=== PATIENT | female | born 1945 | race African-American/Black ===

== ENCOUNTER 2019-03-06 21:15 | Emergency (ER) | payer OTHER, BC ==
[~2019-03-06] VITALS: Ht 165.1 cm; Wt 70.3 kg
--- NOTE | 2019-03-06 21:15 | NUR ---
74 Y/O F VARUN RECIEVED FROM [facility] WITH C/O BEHAVIOR DISTURBANCE. PT IS AAOX3, CANT PLACE TIME. BEHAVIOR IS APPROPIATE AND CALM. PT IS COOPERATIVE. PER EMS "PT IS NEW TO THIS FACILTY, BUT SHE WAS COOPERATIVE ON SCENE." ERMD NOTIFIED. WILL CONTINUE TO MONITOR.
[2019-03-06 21:18] VITALS: BP 161/99
[2019-03-06] MEDS ORDERED: QUET25TA PO (21:28)
[2019-03-06] MEDS ORDERED: FISH10005 PO (21:28)
[2019-03-06] MEDS ORDERED: MAGN400S60 PO (21:28)
[2019-03-06] MEDS ORDERED: FERR325E14 PO (21:28)
[2019-03-06] MEDS ORDERED: FOLI1TAB89 PO (21:28)
[2019-03-06] MEDS ORDERED: ESCI10TA PO (21:28)
[2019-03-06] MEDS ORDERED: QUET100T44 PO (21:28)
[2019-03-06] MEDS ORDERED: DONE10TA10 PO (21:28)
[2019-03-06] MEDS ORDERED: DOCU100C16 PO (21:28)
[2019-03-06] MEDS ORDERED: MEMA5TAB PO (21:28)
[2019-03-06] MEDS ORDERED: CYAN-178 PO (21:28)
[2019-03-06] MEDS ORDERED: ATI.5 PO (21:28)
[2019-03-06] MEDS ORDERED: HALOPERIDOL IM 5 MG/ML VIAL IM ONE (21:45)
--- NOTE | 2019-03-06 22:00 | NUR ---
Patient discharged with v/s stable. Written and verbal after care instructions given and explained by . Patient alert, oriented and verbalized understanding of instructions. Wheel Chair Assisted with by EMT. All questions addressed prior to discharge. ID band removed. Patient advised to follow up with PMD. Rx of Seroquel given. Patient educated on indication of medication including possible reaction and side effects. Opportunity to ask questions provided and answered.
== END 2019-03-06 22:00 | disposition home or self-care (01) ==
LOC: MED 21:15
DX: F03.91 Unspecified dementia, unspecified severity, with behavioral disturbance (principal); Z88.0 Allergy status to penicillin; Z88.8 Allergy status to other drugs, medicaments and biological substances; Z79.899 Other long term (current) drug therapy
CPT/HCPCS: 96372; 99283; J1630

== ENCOUNTER 2019-06-14 11:56 | Inpatient (IN) | payer OTHER, BC, MEDICAID ==
[~2019-06-14] VITALS: Ht 167.6 cm; Wt 74.8 kg
[2019-06-14 11:56] VITALS: BP 120/55
[~2019-06-14 11:56] MED LIST: ATI.5 PO; CYAN-178 PO; DOCU100C16 PO; DONE10TA10 PO; ESCI10TA PO; FERR325E14 PO; FISH10005 PO; FOLI1TAB89 PO; MAGN400S60 PO; MEMA5TAB PO; QUET100T44 PO; QUET25TA PO
--- NOTE | 2019-06-14 12:03 | NUR ---
PT BIB ALS TO ER BED 4
--- NOTE | 2019-06-14 12:05 | NUR ---
VARUN FROM [facility] W/ C/O ALOC STARTING THIS MORNING. PER EMS, FACILITY STATED PT IS MORE CONFUSED THAN NORMAL. LAST SEEN NORMAL YESTERDAY. PT NORMALLY IS AOX1 TO HER NAME BUT TODAY HAS NOT SPOKEN PER FACILITY. PT IS MUMBLING INCOMPREHENSIBLE WORDS/SOUNDS TODAY. PT IS NOT ANSWERING QUESTIONS. PT IS SINUS BRADYCARDIA AT 48BPM. GCS 9 (3,4,2). BED IN LOW POSITION, SIDE RAIL UP X2 FOR PT SAFETY
[2019-06-14] MEDS ORDERED: NACL 0.9% 500 ML IV SCH (12:13)
[2019-06-14] MEDS ORDERED: DONE10TA10 PO (13:06)
[2019-06-14] MEDS ORDERED: ACET-2619 PO (13:06)
--- NOTE | 2019-06-14 13:25 | NUR ---
DR FLORIAN AT BEDSIDE EVALUATING PT.
[2019-06-14 13:29] LABS: APPEARANCE,URINE CLEAR (CLEAR); BILIRUBIN,URINE 1+ (NEGATIVE); BLOOD, URINE TRACE-L (NEGATIVE); COLOR,URINE YELLOW (YELLOW); LEUKOCYTE ESTERASE ,URINE NEGATIVE (NEGATIVE); NITRITE, URINE NEGATIVE (NEGATIVE); UGLUCOSE NEGATIVE (NEGATIVE)
[2019-06-14 13:29] LABS: ALBUMIN 3.9 g/dL (3.4-5.0); ANION GAP 14.3 (8-16); ASPARTATE AMINOTRANSFERASE 27 U/L (15-37); CARBON DIOXIDE 27.3 mmol/L (21-32); CHLORIDE 113 mmol/L (98-107); GLUCOSE 76 mg/dL (74-106); POTASSIUM 3.6 mmol/L (3.5-5.1); SODIUM SERUM 151 mmol/L (136-145); TOTAL BILIRUBIN 1.1 mg/dL (0.0-1.0); UREA NITROGEN, BLOOD 17 mg/dL (7-18)
--- NOTE | 2019-06-14 13:32 | NUR ---
PT RESTING IN BED, POSITIONED TO COMFORT, APPEARS TO BE IN NO DISTRESS, VSS.
[2019-06-14 13:46] LABS: BASOPHILS % (AUTO) 0.4 % (0.0-2.0); EOSINOPHILS % (AUTO) 0.6 % (0.0-4.0); HEMATOCRIT 36.1 % (36-48); HEMOGLOBIN 11.5 g/dL (12.0-16.0); LYMPHOCYTES # (AUTO) 1.3 K/uL (2.5-16.5); LYMPHOCYTES % (AUTO) 15.6 % (20.5-51.1); MEAN CORPUSCULAR HEMOGLOBIN 31 pg (27-31); MEAN CORPUSCULAR HGB CONC 32 g/dL (33-37); MEAN CORPUSCULAR VOLUME 98.2 fL (80-94); MONOCYTES # (AUTO) 0.4 K/uL (0.8-1.0); MONOCYTES % (AUTO) 4.8 % (1.7-9.3); NEUTROPHILS # (AUTO) 6.3 K/uL (1.8-7.7); NEUTROPHILS % (AUTO) 78.6 % (42.2-75.2); PLATELET COUNT (AUTO) 176 K/uL (140-450); RED BLOOD CELL COUNT(AUTO) 3.67 MIL/uL (4.20-5.40); RED CELL DISTRIBUTION WIDTH 14.8 % (11.6-13.7)
[2019-06-14] MEDS ORDERED: BENZ-196 PO (13:46)
[2019-06-14] MEDS ORDERED: QUET200T PO (13:46)
[2019-06-14] MEDS ORDERED: QUET50TA PO (13:46)
[2019-06-14 14:07] LABS: PROTHROMBIN TIME 10.3 secs (10.8-13.4)
[2019-06-14 14:40] LABS: RBC,URINE 0-5 /HPF (0-5); WBC,URINE NONE SEEN /HPF (0-5)
--- NOTE | 2019-06-14 15:25 | NUR ---
PT LEFT TO CT
[2019-06-14] MEDS: NACL 0.9% 1,000 ML IV SCH (15:27)
[2019-06-14] MEDS ORDERED: HYDROcodone/APAP 7.5/325 MG 1 TAB PO PRN (15:30)
[2019-06-14] MEDS ORDERED: ACETAMINOPHEN 325 MG TAB PO PRN (15:30)
[2019-06-14] MEDS ORDERED: ONDANSETRON 4 MG/2 ML VIAL IVP PRN (15:30)
--- NOTE | 2019-06-14 16:00 | NUR ---
PT RESTING IN BED, SON & DAUGHTER AT BEDSIDE
--- NOTE | 2019-06-14 16:30 | NUR ---
RECEIVED PATIENT FROM ER NURSE. PATIENT IS ON ROOM AIR. DNR, ALLERGIES TO PENICILLIN & IODINE. PATIENT IS ALOC. IV TO LEFT FA, 20G. SKIN IS INTACT. ADMITTING TELE STRIP IS SINUS RHYTHM WITH PACs
--- NOTE | 2019-06-14 16:38 | NUR ---
Patient will be admitted to care of DR. HILLS. Admited to TELEMETRY. Will go to room 108-B. Belongings list completed. Report to YANY HENSON.
[2019-06-14 17:11] LABS: FREE T4 (FREE THYROXINE) 0.64 ng/dL (0.76-1.46); MAGNESIUM 2.3 mg/dL (1.8-2.4); PHOSPHORUS 3.2 mg/dL (2.5-4.9); THYROID STIMULATING HORMONE 1.95 uIU/mL (0.34-3.74)
--- NOTE | 2019-06-14 18:54 | NUR ---
PATIENT IS RESTING QUIETLY IN BED. NS INFUSING AT 50ML/HR. WILL ENDORSE TO NEXT SHIFT FOR CONTINUITY OF CARE.
[2019-06-14] MEDS ORDERED: MECLIZINE 25 MG TAB PO PRN (19:20)
[2019-06-14] MEDS ORDERED: MAGNESIUM HYDROXIDE 2400 MG/30 ML UDC PO PRN (19:40)
[2019-06-14 20:00] VITALS: BP 144/76
--- NOTE | 2019-06-14 20:05 | NUR ---
ASSESSED PATIENTS ABILITY TO SWALLOW THIN LIQUIDS FOR SCHEDULED PO MEDICATIONS. PATIENT ABLE TO SWALLOW-SPOON FED AND BY STRAW, WITHOUT ANY CHOKING OR GAGGING. WILL CARRY OUT SCHEDULED MEDICATIONS
--- NOTE | 2019-06-14 20:10 | NUR ---
PATIENT IN BED, AWAKE, ANOx0, CANNOT MAKE NEEDS KNOWN, DOES NOT FOLLOW SIMPLE COMMANDS. PATIENT WITHDRAWS TO LIGHT PAIN. PERRL SLUGGISH 3MM. PATIENT IS ON ROOM AIR, SATURATING AT 100%. HR-66, RR-12, BP-144/76, FLACC 0, TEMPERATURE-98.2 VIA AXILLARY, SKIN WARM AND DRY, LOOSE. SKIN INTACT. LEFT FOREARM 20G PERIPHERAL IV, INFUSING NS @ 50ML/HR. SITE IS FLUSHED, PATENT AND NO SYMPTOMS. LUNG SOUNDS DIMINISHED, EQUAL CHEST RISE, BREATHING IS UNLABORED. S1S2. ABDOMEN SOFT AND NONTENDER, BOWEL SOUNDS ARE ACTIVE. PATIENT IS INCONTINENT, BRIEF IS IN PLACE. SAFETY ALARMS CHECKED AND FALL PRECAUTIONS IN PLACE. SIDERAILS UP, BED LOCKED AND IN LOWEST POSITION. WILL CONTINUE TO MONITOR
--- NOTE | 2019-06-14 20:17 | NUR ---
[facility] CALLED RE: LEXAPRO DOSE. NOT AVAILABLE IN 5 MG . THEY HAVE ONLY [address] MELLO AWARE. HOLD ORDER FOR RENE. WILL FOLLOW IT UP IN THE AM
--- NOTE | 2019-06-14 20:22 | NUR ---
INFORMED PHARMACIST THAT SAID TO HOLD FOR [employer].
[2019-06-14] MEDS: DONEPEZIL 10 MG TAB PO SCH (20:41)
[2019-06-14] MEDS: DOCUSATE SODIUM 100 MG GELCAP PO SCH (20:42)
--- NOTE | 2019-06-14 20:57 | NUR ---
ULTRASOUND AT BEDSIDE, PATIENT AWAKE, TOLERATED WELL.
[2019-06-14] MEDS ORDERED: QUEtiapine FUMARATE 100 MG TAB PO SCH (21:00)
--- NOTE | 2019-06-14 22:10 | NUR ---
CHECKED IN ON PATIENT, RESTING WELL, EYES CLOSED, AUDIBLE SOUNDS NOTED (SNORING) IV FLUIDS INFUSING, CHEST RISE AND FALL. WILL CONTINUE FREQUENT ROUNDS
[2019-06-15] VITALS: BP 137/68
--- NOTE | 2019-06-15 | NUR ---
TURNED AND REPOSITIONED PATIENT, CHECKED VITALS, ALL WITHIN NORMAL LIMITS. PATIENT ANOx0, SPEECH IS INCOMPREHENSIBLE, WITHDRAWS TO LIGHT PAIN/SHAKING. OFFLOAD PRESSURE SITES.
[2019-06-15] MEDS: NACL 0.9% 1,000 ML IV SCH ×2 (03:25→13:27)
[2019-06-15 04:00] VITALS: BP 144/54
--- NOTE | 2019-06-15 06:34 | NUR ---
PT ASLEEP, BUT EASILY AROUSABLE TO VERBAL AND TACTILE STIMULI. PT IN STABLE CONDITION AT THIS TIME.
--- NOTE | 2019-06-15 07:10 | NUR ---
RECEIVED BEDSIDE REPORT FROM DIRECTOR OF RESTAURANT NURSE FOR CONTINUITY OF CARE. PATIENT IS RESTING ON BED AT THIS TIME. AROUSABLE TO VOICE. PATIENT IS AAOX1, PATIENT MUMBLED SOME WORDS, UNCOMPREHENDING. RESPIRATION EVEN AND UNLABORED ON RA. FLACC 0. NO SIGNS OF DISTRESS NOTED. IV ON LAC 20G, CLEAN AND INTACT, INFUSING PER MD ORDER. SKIN CLEAN AND DRY. PATIENT IS INCONTINENT AND BEDREST AT THIS TIME. PATIENT IS MAINTAIN NPO PER MD ORDER, AND SIGN POSTED ON DOOR. SAFETY MEASURES IN PLACE. FALL RISK PROTOCOL IN PLACE AND BED ALARM ACTIVATED. BED IN LOW POSITION AND CALL LIGHT WITHIN REACH.
[2019-06-15 07:41] LABS: BASOPHILS % (AUTO) 0.7 % (0.0-2.0); EOSINOPHILS # (AUTO) 0.2 K/uL (0-0.4); EOSINOPHILS % (AUTO) 3.2 % (0.0-4.0); HEMATOCRIT 34.3 % (36-48); HEMOGLOBIN 10.9 g/dL (12.0-16.0); LYMPHOCYTES # (AUTO) 1.7 K/uL (2.5-16.5); LYMPHOCYTES % (AUTO) 25.3 % (20.5-51.1); MEAN CORPUSCULAR HEMOGLOBIN 31 pg (27-31); MEAN CORPUSCULAR HGB CONC 32 g/dL (33-37); MEAN CORPUSCULAR VOLUME 98.1 fL (80-94); MONOCYTES # (AUTO) 0.5 K/uL (0.8-1.0); MONOCYTES % (AUTO) 6.9 % (1.7-9.3); NEUTROPHILS # (AUTO) 4.3 K/uL (1.8-7.7); NEUTROPHILS % (AUTO) 63.9 % (42.2-75.2); PLATELET COUNT (AUTO) 165 K/uL (140-450); RED BLOOD CELL COUNT(AUTO) 3.49 MIL/uL (4.20-5.40); RED CELL DISTRIBUTION WIDTH 14.8 % (11.6-13.7); WHITE BLOOD COUNT (AUTO) 6.7 K/uL (4.8-10.8)
[2019-06-15 07:56] LABS: ANION GAP 11.2 (8-16); CARBON DIOXIDE 27.1 mmol/L (21-32); CHLORIDE 114 mmol/L (98-107); CREATININE 0.8 mg/dL (0.6-1.3); GLUCOSE 70 mg/dL (74-106); POTASSIUM 3.3 mmol/L (3.5-5.1); SODIUM SERUM 149 mmol/L (136-145); UREA NITROGEN, BLOOD 12 mg/dL (7-18)
[2019-06-15 08:00] VITALS: BP 148/60
[2019-06-15 08:10] LABS: PHOSPHORUS 2.3 mg/dL (2.5-4.9)
--- NOTE | 2019-06-15 08:22 | NUR ---
PATIENT HAS BEEN SCREENED AND CATEGORIZED MODERATE NUTRITION RISK. PATIENT WILL BE SEEN WITHIN 3-5 DAYS OF ADMISSION. 06/17/19 06/19/[address]
[2019-06-15 08:41] LABS: CHOL/HDL RATIO 4.5 (1-4.5)
[2019-06-15] MEDS ORDERED: QUEtiapine FUMARATE 100 MG TAB PO SCH (09:00)
[2019-06-15] MEDS: DOCUSATE SODIUM 100 MG GELCAP PO SCH ×2 (09:51→20:11)
[2019-06-15] MEDS: FAMOTIDINE 20 MG TAB PO SCH (09:52)
[2019-06-15] MEDS: MEMANTINE 10 MG TAB PO SCH (09:52)
--- NOTE | 2019-06-15 09:54 | NUR ---
ADMINISTERED MEDS PER MD ORDER, CRUSHED MEDS AND MIXED WITH APPLE SAUCE, PATIENT TOLERATED WELL. MEDS EDUCATION PROVIDED TO PATIENT AND REINFORCEMENT NEEDED. PATIENT IS AAOX1 TO HER NAME AND SHE MUMBLED SOME WORDS INCOMPREHENSIBLE. PATIENT IS RESTING ON BED. FLACC 0. RESPIRATION EVEN AND UNLABORED ON RA. NO SIGNS OF DISTRESS NOTED. SAFETY MEASURES IN PLACE. TELE MONITOR ATTACHED. FALL RISK PROTOCOL INITIALED AND BED ALARM ACTIVATED. BED IN LOW POSITION AND CALL LIGHT WITHIN REACH.
--- NOTE | 2019-06-15 10:04 | NUR ---
PATIENT IS PARTICIPATING IN PHYSICAL THERAPY SESSION WITH WILLIAM MUNOZ. NO SIGNS OF DISTRESS NOTED. TELE MONITOR ATTACHED.
--- NOTE | 2019-06-15 10:52 | NUR ---
RECEIVED A CALL FROM [facility] , SPOKE WITH JOAN PADRON [phone] UPDATED PT'S STATUS AND CONDITION AND FAXED THE CLINICAL TO [phone]
--- NOTE | 2019-06-15 11:08 | NUR ---
REPOSITIONED PATIENT TO HER RIGHT SIDE WITH ASSIST FROM STUDENT NURSE, OFF LOADED PRESSURES FROM BACK AND LEGS WITH PILLOWS. PATIENT TOLERATED WELL. PATIENT IS AWAKE AND MUMBLING SOME WORDS UNABLE TO COMPREHEND. FLACC 0. RESPIRATION EVEN AND UNLABORED ON RA. NO SIGNS OF DISTRESS NOTED. TELE MONITOR ATTACHED. SAFETY MEASURES IN PLACE. BED IN LOW POSITION AND CALL LIGHT WITHIN REACH. FALL RISK PROTOCOL IN PLACE AND BED ALARM ACTIVATED.
--- NOTE | 2019-06-15 11:58 | NUR ---
VITAL SIGNS TAKEN, PATIENT AWAKE AND RESTING WITH BOTH EYES AND LOOKING AT THE CEILING. WHEN ASK PATIENT IF SHE HAS ANY PAIN, PATIENT MUMBLING WITH SOME WORDS UNABLE TO COMPREHEND. FLACC 0. NO SIGNS OF DISTRESS NOTED. SAFETY MEASURES IN PLACE. BED IN LOW POSITION AND CALL LIGHT WITHIN REACH. TELE MONITOR ATTACHED. FALL RISK PROTOCOL IN PLACE AND BED ALARM ACTIVATED.
[2019-06-15 12:00] VITALS: BP 149/52
[2019-06-15] MEDS ORDERED: POTASSIUM CHLORIDE 20 MEQ, LIDOCAINE MPF 1% 25 MG in NACL 0.9% 250 ML IV SCH (12:30)
--- NOTE | 2019-06-15 12:37 | NUR ---
ADMINISTERED POTASSIUM CHLORIDE VIA IVPB FOR POTASSIUM LAB VALUE 3.3 FROM AM LAB, MED EDUCATION PROVIDED TO PATIENT AND REINFORCEMENT NEEDED. PATIENT IS RESTING ON BED AT THIS TIME AND MUMBLING SOME WORDS INCOMPREHENSIBLE. FLACC 0. NO SIGNS OF DISTRESS NOTED. TELE MONITOR ATTACHED. SAFETY MEASURES IN PLACE. BED IN LOW POSITION AND CALL LIGHT WITHIN REACH. FALL RISK PROTOCOL IN PLACE AND BED ALARM ACTIVATED.
--- NOTE | 2019-06-15 13:11 | NUR ---
PATIENT AWAKE AND INTERACTING WITH DAUGHTER- IN- LAW YOGESH BY BEDSIDE. NO SIGNS OF DISTRESS NOTED. SAFETY MEASURES IN PLACE. BED IN LOW POSITION AND CALL LIGHT WITHIN REACH. TELE MONITOR ATTACHED. FALL RISK PROTOCOL IN PLACE AND BED ALARM ACTIVATED.
--- NOTE | 2019-06-15 15:10 | NUR ---
CALLED TATI ROPER TO FOLLOW UP ON VACCINATION RECORD, PER CLOTH EXAMINER, THE MEDICAL RECORD TECH/ PERSONNEL IS OUT TO LUNCH AT THIS TIME. PROVIDED A CALL BACK NUMBER TO CLOTH EXAMINER TO RETURN CALL.
--- NOTE | 2019-06-15 15:35 | NUR ---
ASSISTED ENGINE TURNER TO CLEAN AND CHANGE PATIENT, PATIENT TOLERATED WELL. REPOSITIONED PATIENT TO HER LEFT LATERAL AND OFF LOADED PRESSURE FROM BACK AND LEGS WITH PILLOWS. NO SIGNS OF DISTRESS NOTED. PATIENT IS RESTING ON BED AND MUMBLING SOME WORDS INCOMPREHENSIBLE. TELE MONITOR ATTACHED. SAFETY MEASURES IN PLACE. FALL RISK PROTOCOL AND BED ALARM ACTIVATED. BED IN LOW POSITION AND CALL LIGHT WITHIN REACH.
--- NOTE | 2019-06-15 15:56 | NUR ---
RADIOLOGIST KEITH MAYER IS DOING ECHOCARDIOGRAM BY BEDSIDE. NO SIGNS OF DISTRESS NOTED. TELE MONITOR ATTACHED. SAFETY MEASURES IN PLACE.
[2019-06-15 16:00] VITALS: BP 147/78
--- NOTE | 2019-06-15 17:24 | NUR ---
PATIENT IS AWAKE WITH BOTH EYES OPEN AND RESTING ON BED AT THIS TIME. RESPIRATION EVEN AND UNLABORED ON RA. WHEN ASK IF SHE IS FEELING OK, PATIENT MUMBLING SOME WORDS AND YAWNING. FLACC 0. NO SIGNS OF DISTRESS NOTED. TELE MONITOR ATTACHED. SAFETY MEASURES IN PLACE. BED IN LOW POSITION AND CALL LIGHT WITHIN REACH. FALL RISK PROTOCOL IN PLACE AND BED ALARM ACTIVATED.
--- NOTE | 2019-06-15 19:15 | NUR ---
ENDORSED PATIENT AT BEDSIDE TO COTTON GIN YARD SUPERVISOR NURSE FOR CONTINUITY OF CARE. PATIENT IS AWAKE AND RESTING ON BED AT THIS TIME. NO SIGNS OF DISTRESS NOTED. PATIENT IS IN STABLE CONDITION. TELE MONITOR ATTACHED. SAFETY MEASURES IN PLACE. BED IN LOW POSITION AND CALL LIGHT WITHIN REACH. FALL RISK PROTOCOL IN PLACE AND BED ALARM ACTIVATED.
[2019-06-15] MEDS ORDERED: LACTULOSE 20 GM/30 ML UDC PO SCH (19:30)
[2019-06-15 20:00] VITALS: BP 157/67
[2019-06-15] MEDS ORDERED: POTASSIUM PHOSPHATE 15 MM in NACL 0.9% 250 ML IV SCH (20:00)
[2019-06-15] MEDS: QUEtiapine FUMARATE 100 MG TAB PO SCH (20:12)
[2019-06-15] MEDS: ATORVASTATIN 20 MG TAB PO SCH (20:12)
[2019-06-15] MEDS: DONEPEZIL 10 MG TAB PO SCH (20:12)
--- NOTE | 2019-06-15 20:12 | NUR ---
ADMINISTERED DUE MEDS, EXPLAINED TO PATIENT BUT PT IS FLACC 0, AO X 1.WILL MONITOR FOR SIDE EFFECTS
[2019-06-15] MEDS: ESCITALOPRAM 20 MG TAB PO SCH (20:13)
--- NOTE | 2019-06-15 20:39 | NUR ---
INFORMED DR. BAZZI THAT K PHOSPHATE IV NOT AVAILABLE TONIGHT IN THE HOSPITAL STOCK. JEWELS, ENVELOPE SEALER OPERATOR ADVISED. AWARE AND WILL CHANGE THE ORDER. AWAITING ORDERS
[2019-06-15] MEDS: NACL 0.45% 1,000 ML IV SCH (20:47)
--- NOTE | 2019-06-15 20:47 | NUR ---
CHANGED THE IV BAG TO D5NS ORDERED.
--- NOTE | 2019-06-15 21:00 | NUR ---
REPOSITIONED PATIENT, OFFLOAD PRESSURE ON HER BACK, PLACED HER IN SEMI FOWLERS POSITION
--- NOTE | 2019-06-15 22:01 | NUR ---
PATIENT TURNED TO ONE SIDE, CLEANED AND CHANGED GOWN. NO FACIAL GRIMACING. NO RESPIRATOIRY DISTRESS PT WENT BACK TO SLEEP WILL CONTINUE TO MONITOR
[2019-06-16] VITALS: BP 148/68
--- NOTE | 2019-06-16 | NUR ---
CHECKED ON PATIENT, PATIENT MUMBLING TO HERSELF, CLEANED AND TURNED HER TO ONE SIDE. REPOSITIONED IN A COMFORTABLE POSITION. PT WENT BACK TO SLEEP Addendum: 06/17/19 at 0313 by Sherry Gatica RN DELETE NOTE
[2019-06-16 04:00] VITALS: BP 136/83
[2019-06-16] MEDS: NACL 0.45% 1,000 ML IV SCH ×2 (05:57→16:07)
--- NOTE | 2019-06-16 06:34 | NUR ---
PT SLEEPING, AWAKE ALERT O X 1, STILL LETHARGIC, BUT PT WAS ABLE TO SPEAK FEW WORDS, INCOMPREHENSIBLE, NO CHANGE OF CONDITION,WILL ENDORSE TO NEXT SHIFT.
--- NOTE | 2019-06-16 07:10 | NUR ---
RECEIVED BEDSIDE REPORT FROM HOGSHEAD SALVAGE NURSE FOR CONTINUITY OF CARE. PATIENT IS RESTING ON BED AT THIS TIME. AROUSABLE TO VOICE. PATIENT IS AAOX1, PATIENT MUMBLED SOME WORDS,FLACC 0. RESPIRATION EVEN AND UNLABORED ON RA. NO SIGNS OF DISTRESS NOTED. IV ON LAC 20G, CLEAN AND INTACT, INFUSING PER MD ORDER. SKIN CLEAN AND DRY. PATIENT IS INCONTINENT AND BEDREST AT THIS TIME. PATIENT IS MAINTAIN NPO PER MD ORDER, AND SIGN POSTED ON DOOR. TELE MONITOR ATTACHED. SAFETY MEASURES IN PLACE. FALL RISK PROTOCOL IN PLACE AND BED ALARM ACTIVATED. BED IN LOW POSITION AND CALL LIGHT WITHIN REACH.
[2019-06-16 07:47] LABS: BASOPHILS % (AUTO) 0.8 % (0.0-2.0); EOSINOPHILS # (AUTO) 0.2 K/uL (0-0.4); HEMATOCRIT 34.8 % (36-48); HEMOGLOBIN 11.1 g/dL (12.0-16.0); LYMPHOCYTES # (AUTO) 1.9 K/uL (2.5-16.5); LYMPHOCYTES % (AUTO) 30.6 % (20.5-51.1); MEAN CORPUSCULAR HEMOGLOBIN 31 pg (27-31); MEAN CORPUSCULAR HGB CONC 32 g/dL (33-37); MEAN CORPUSCULAR VOLUME 97.6 fL (80-94); MONOCYTES # (AUTO) 0.4 K/uL (0.8-1.0); MONOCYTES % (AUTO) 5.8 % (1.7-9.3); NEUTROPHILS # (AUTO) 3.6 K/uL (1.8-7.7); NEUTROPHILS % (AUTO) 59.8 % (42.2-75.2); PLATELET COUNT (AUTO) 163 K/uL (140-450); RED BLOOD CELL COUNT(AUTO) 3.56 MIL/uL (4.20-5.40); RED CELL DISTRIBUTION WIDTH 14.7 % (11.6-13.7); WHITE BLOOD COUNT (AUTO) 6.1 K/uL (4.8-10.8)
[2019-06-16 08:00] VITALS: BP 131/75
[2019-06-16 08:04] LABS: ANION GAP 14.4 (8-16); CARBON DIOXIDE 25.8 mmol/L (21-32); CHLORIDE 109 mmol/L (98-107); CREATININE 0.8 mg/dL (0.6-1.3); GLUCOSE 68 mg/dL (74-106); POTASSIUM 3.2 mmol/L (3.5-5.1); SODIUM SERUM 146 mmol/L (136-145); UREA NITROGEN, BLOOD 9 mg/dL (7-18)
[2019-06-16 08:11] LABS: PHOSPHORUS 2.2 mg/dL (2.5-4.9)
[2019-06-16] MEDS: SODIUM PHOS / POTASSIUM PHOS 1 PKT PDR PO SCH (09:50)
[2019-06-16] MEDS: FAMOTIDINE 20 MG TAB PO SCH (09:51)
[2019-06-16] MEDS: MEMANTINE 10 MG TAB PO SCH (09:51)
[2019-06-16] MEDS: QUEtiapine FUMARATE 100 MG TAB PO SCH ×2 (09:51→21:44)
[2019-06-16] MEDS: DOCUSATE SODIUM 100 MG GELCAP PO SCH ×2 (09:52→21:40)
--- NOTE | 2019-06-16 09:54 | NUR ---
ADMINISTERED MEDS PER MD ORDER, CRUSHED MEDS AND MIXED WITH APPLE SAUCE, PATIENT TOLERATED WELL. MEDS EDUCATION PROVIDED TO PATIENT AND REINFORCEMENT NEEDED. PATIENT AWAKE AND MUMBLING ON BED. RESPIRATION EVEN AND UNLABORED ON RA. FLACC 0. NO SIGNS OF DISTRESS NOTED. TELE MONITOR ATTACHED. SAFETY MEASURES IN PLACE. FALL RISK PROTOCOL IN PLACE AND BED ALARM ACTIVATED. BED IN LOW POSITION AND CALL LIGHT WITHIN REACH.
--- NOTE | 2019-06-16 10:38 | NUR ---
CONTACTED APURVA AT [phone], ABLE TO SPEAK TO CHANDA (CUST REP). SHE PROVIDED ME WITH TAMMY (CALCINER OPERATOR HELPER) [phone], NO ANSWER. LEFT MESSAGE. AND ALSO RAGHAVENDRA (THU) AT [phone], NO ANSWER WELL. LEFT MESSAGE REGARDING DC PLAN. CM TO FOLLOW UP.
--- NOTE | 2019-06-16 10:59 | NUR ---
RECEIVED A CALL FROM CHELLE (HAIRMASTERS MANAGER) FROM [facility], INFORMED HER OF THE DC PLAN TO SNF FOR PT. SHE STATED THAT SHE SPOKE TO SOMEBODY YESTERDAY REGARDING SNF PLACEMENT DUE TO PATIENT'S BEHAVIOR AND IT IS NOT APPROPRIATE TO DC PATIENT TO SNF WITHOUT SKILLED NEEDS. SHE PROVIDED ME WITH THE FAX NUMBER [phone] TO SEND ORDER. AWAITING FOR PHYSICAL THERAPY RECOMMENDATIONS.
--- NOTE | 2019-06-16 11:14 | NUR ---
RECEIVED A CALL FROM PATIENT'S DAUGHTER IN [place] THAT SHE SAID THAT PATIENT HAS NOT GETTING FLU AND PNA VACCINES, AND SHE WOULD LIKE TO GET ALL VACCINES UPON DC. MAKE NOTES OF IT.
--- NOTE | 2019-06-16 11:45 | NUR ---
PATIENT IS RESTING ON BED AND AROUSABLE TO VOICE. PATIENT SAID "DON'T TOUCH MY HAND." AND MUMBLING SOME WORDS THAT UNABLE TO UNDERSTAND. NO SIGNS OF DISTRESS NOTED. SAFETY MEASURES IN PLACE. TELE MONITOR ATTACHED. BED IN LOW POSITION AND CALL LIGHT WITHIN REACH. BED ALARM ACTIVATED.
[2019-06-16 12:00] VITALS: BP 151/64
--- NOTE | 2019-06-16 13:50 | NUR ---
ASSISTED COMPUTER SYSTEMS SOFTWARE ARCHITECT TO CLEAN AND CHANGE PATIENT, PATIENT TOLERATED WELL. REPOSITIONED PATIENT TO HER RIGHT AND OFF LOADED PRESSURE FROM BACK AND LEGS WITH PILLOWS. NO SIGNS OF DISTRESS NOTED. PATIENT IS RESTING ON BED AND MUMBLING SOME WORDS INCOMPREHENSIBLE. TELE MONITOR ATTACHED. SAFETY MEASURES IN PLACE. FALL RISK PROTOCOL AND BED ALARM ACTIVATED. BED IN LOW POSITION AND CALL LIGHT WITHIN REACH.
--- NOTE | 2019-06-16 14:46 | NUR ---
SPOKE TO TAMMY THOMAS, SHE STATED THAT THERE IS NO PT NEEDS FOR THIS PATIENT DUE TO POOR REHAB POTENTIAL. DR. DUARTE MADE AWARE.
[2019-06-16] MEDS ORDERED: POTASSIUM CHLORIDE 40 MEQ, LIDOCAINE MPF 1% 25 MG in NACL 0.9% 250 ML IV SCH (15:00)
[2019-06-16] MEDS ORDERED: SODIUM PHOS / POTASSIUM PHOS 1 PKT PDR PO SCH (15:00)
--- NOTE | 2019-06-16 15:20 | NUR ---
PATIENT IS RESTING ON BED AND MUMBLING TO HERSELF. WHEN ASK IF SHE HAS ANY PAIN, SHE REPLIED WITH SOME WORDS MUMBLING AND UNABLE TO UNDERSTAND. FLACC 0. RESPIRATION EVEN AND UNLABORED ON RA. NO SIGNS OF DISTRESS NOTED. TELE MONITOR ATTACHED. SAFETY MEASURES IN PLACE. FALL RISK PROTOCOL AND BED ALARM ACTIVATED. BED IN LOW POSITION AND CALL LIGHT WITHIN REACH.
[2019-06-16 16:00] VITALS: BP 155/82
--- NOTE | 2019-06-16 16:06 | NUR ---
ADMINISTERED MEDS PER MD ORDER, UNABLE TO SCAN AND HA[place] ENTER, PATIENT TOLERATED WELL. PATIENT IS RESTING ON BED AND AROUSABLE TO VOICE. NO SIGNS OF DISTRESS NOTED. TELE MONITOR ATTACHED. SAFETY MEASURES IN PLACE. FALL RISK PROTOCOL AND BED ALARM ACTIVATED. BED IN LOW POSITION AND CALL LIGHT WITHIN REACH.
--- NOTE | 2019-06-16 18:19 | NUR ---
PATIENT IS AWAKE WITH BOTH EYES OPEN AND MUMBLING TO HERSELF ON BED AT THIS TIME. NO SIGNS OF DISTRESS NOTED. TELE MONITOR ATTACHED. SAFETY MEASURES IN PLACE. FALL RISK PROTOCOL AND BED ALARM ACTIVATED. BED IN LOW POSITION AND CALL LIGHT WITHIN REACH.
--- NOTE | 2019-06-16 19:15 | NUR ---
ENDORSED PATIENT AT BEDSIDE TO QUILL BUNCHER AND SORTER NURSE FOR CONTINUITY OF CARE. PATIENT IS RESTING ON BED AT THIS TIME AND AROUSABLE TO VOICE. NO SIGNS OF DISTRESS NOTED. PATIENT IS IN STABLE CONDITION. SAFETY MEASURES IN PLACE. TELE MONITOR ATTACHED. FALL RISK PROTOCOL IN PLACE AND BED ALARM ACTIVATED. BED IN LOW POSITION AND CALL LIGHT WITHIN REACH.
--- NOTE | 2019-06-16 19:16 | NUR ---
RECEIVED BEDSIDE REPORT FROM AM NURSE FOR CONTINUITY OF CARE. PT A, A O X 1. BEDREST. PT ABLE TO RESPOND WITH HER NAME, BUT MUMBLING INCOMPREHENSIBLE WORDS. FLACC 0. RESPIRATION EVEN AND UNLABORED ON RA. NO SIGNS OF DISTRESS NOTED. TELE MONITOR ATTACHED. SAFETY MEASURES IN PLACE. FALL RISK PROTOCOL AND BED ALARM ACTIVATED. BED IN LOW POSITION AND CALL LIGHT WITHIN REACH.
[2019-06-16 20:00] VITALS: BP 146/65
--- NOTE | 2019-06-16 20:30 | NUR ---
POTASSIUM CHLORIDE INFUSION DONE AND SHIFTED TO 1/2 NS AT 100 ML/HR
[2019-06-16] MEDS: DONEPEZIL 10 MG TAB PO SCH (21:40)
[2019-06-16] MEDS: ESCITALOPRAM 20 MG TAB PO SCH (21:42)
[2019-06-16] MEDS: ATORVASTATIN 20 MG TAB PO SCH (21:44)
[2019-06-17] VITALS: BP 123/70
--- NOTE | 2019-06-17 | NUR ---
CHECKED ON PATIENT, PATIENT MUMBLING TO HERSELF, CLEANED AND TURNED HER TO ONE SIDE. REPOSITIONED IN A COMFORTABLE POSITION. PT WENT BACK TO SLEEP
--- NOTE | 2019-06-17 00:50 | NUR ---
CHECKED ON THE PT AGAIN AND THE IVF, INFUSING WELL, PATENT
--- NOTE | 2019-06-17 02:00 | NUR ---
PT SLEEPING TURNED, STILL LETHARGIC NO SOB NO SIGNS AND SYMPTOMS OF PAIN
[2019-06-17 04:00] VITALS: BP 114/48
--- NOTE | 2019-06-17 04:12 | NUR ---
PT SLEEPING NO SIGNS AND SYMPTOMS OF PAIN. PT TURNED AND CLEANED, PT WENT BACK TO BED. WILL CONTINUE TO MONITOR
[2019-06-17] MEDS: NACL 0.45% 1,000 ML IV SCH ×2 (06:28→11:10)
[2019-06-17] MEDS ORDERED: PNEUMOCOCCAL VACCINE 23 MCG/0.5 ML VIAL IMVAC SCH (06:30)
[2019-06-17 06:43] LABS: ANION GAP 13.3 (8-16); CARBON DIOXIDE 25.2 mmol/L (21-32); CHLORIDE 105 mmol/L (98-107); CREATININE 0.7 mg/dL (0.6-1.3); GLUCOSE 65 mg/dL (74-106); MAGNESIUM 1.7 mg/dL (1.8-2.4); PHOSPHORUS 2.7 mg/dL (2.5-4.9); POTASSIUM 3.5 mmol/L (3.5-5.1); SODIUM SERUM 140 mmol/L (136-145); UREA NITROGEN, BLOOD 11 mg/dL (7-18)
--- NOTE | 2019-06-17 06:44 | NUR ---
PT LETHARGIC FLACC 0, BEDREST. PT STABLE AT THIS TIME WILL ENDORSE TO NEXT SHIFT
[2019-06-17 06:48] LABS: BASOPHILS # (AUTO) 0.1 K/uL (0.00-0.22); BASOPHILS % (AUTO) 1.3 % (0.0-2.0); EOSINOPHILS # (AUTO) 0.2 K/uL (0-0.4); EOSINOPHILS % (AUTO) 4.2 % (0.0-4.0); HEMOGLOBIN 10.7 g/dL (12.0-16.0); LYMPHOCYTES # (AUTO) 1.5 K/uL (2.5-16.5); LYMPHOCYTES % (AUTO) 26.5 % (20.5-51.1); MEAN CORPUSCULAR HEMOGLOBIN 31 pg (27-31); MEAN CORPUSCULAR HGB CONC 33 g/dL (33-37); MEAN CORPUSCULAR VOLUME 96.1 fL (80-94); MONOCYTES # (AUTO) 0.3 K/uL (0.8-1.0); MONOCYTES % (AUTO) 6.2 % (1.7-9.3); NEUTROPHILS # (AUTO) 3.4 K/uL (1.8-7.7); NEUTROPHILS % (AUTO) 61.8 % (42.2-75.2); PLATELET COUNT (AUTO) 160 K/uL (140-450); RED BLOOD CELL COUNT(AUTO) 3.43 MIL/uL (4.20-5.40); RED CELL DISTRIBUTION WIDTH 14.4 % (11.6-13.7); WHITE BLOOD COUNT (AUTO) 5.5 K/uL (4.8-10.8)
--- NOTE | 2019-06-17 07:15 | NUR ---
RECEIVED PATIENT FROM BATTERY PARTS ASSEMBLER NURSE. PATIENT IS SLEEPING IN BED, VISIBLE CHEST RISE AND FALL. A&O X1, IV TO LEFT AC 20G WITH 1/2NS INFUSING AT 100ML/HR. PATIENT IS DNR WITH ALLERGIES TO PENICILLIN AND IODINE. WILL CONTINUE WITH PLAN OF CARE.
[2019-06-17 08:00] VITALS: BP 157/67
[2019-06-17] MEDS ORDERED: HEPA500056 SUBQ (08:23)
[2019-06-17] MEDS ORDERED: ATOR20TA40 PO ×2 (08:23→08:30)
[2019-06-17] MEDS ORDERED: QUET100T44 PO ×2 (08:23→08:30)
[2019-06-17] MEDS: SODIUM PHOS / POTASSIUM PHOS 1 PKT PDR PO SCH (09:00)
[2019-06-17] MEDS: DOCUSATE SODIUM 100 MG GELCAP PO SCH (09:00)
[2019-06-17] MEDS ORDERED: MAG SULF 2000 MG/WATER PREMIX 50 ML IV SCH (09:00)
[2019-06-17] MEDS: QUEtiapine FUMARATE 100 MG TAB PO SCH (09:37)
[2019-06-17] MEDS: MEMANTINE 10 MG TAB PO SCH (09:38)
[2019-06-17] MEDS: FAMOTIDINE 20 MG TAB PO SCH (09:38)
--- NOTE | 2019-06-17 09:47 | NUR ---
ADMINISTERED MORNING MEDICATION CRUSHED AND MIXED WITH PUDDING. COULD NOT ADMINISTER COLACE D/T PT UNABLE TO SWALLOW MEDICATION WHOLE.
[2019-06-17] MEDS ORDERED: SODIUM PHOS / POTASSIUM PHOS 1 PKT PDR PO SCH (10:00)
--- NOTE | 2019-06-17 10:32 | NUR ---
*S.T. Bedside swallow eval completed* See report for details. Pt presents w/ mild-mod oropharyngeal dysphagia c/b prolonged mastication of soft solids and delayed pharyngeal swallow initiation. However, no overt s/s aspiration were observed. Pt unable to self-feed. Recommend: 1) Advance to mechanical soft chopped diet, thin liquids okay. No straws. Controlled cup sips. 2) P.O. meds crushed and mixed w/ puree. 3) 1:1 feeder w/ aspiration precautions. While recommended diet is slightly downgraded from reported baseline diet, pt does not present as strong rehab candidate. Therefore, no further tx is indicated. DC to [facility] care. Endorsed to YANY Wood. Time [id number]
--- NOTE | 2019-06-17 10:45 | NUR ---
Desktop Support Manager Note: I called and spoke with patient's daughter Teofilo Terrazas , I informed her plan is to discharge patient back to [facility] today. She verbalized understanding and is agreeable with plan. She told me she will be contacting the Desktop Support Manager from [facility] so she can assist her with finding patient another assisted living placement for patient. She stated she does not have any questions nor concerns at this time.
--- NOTE | 2019-06-17 11:33 | NUR ---
RECEIVED A CALL FROM RAGHAVENDRA OF [employer], PROVIDED ME OF TRANSPORT AUTH [id number] WITH [place]. PRIMARY RN NATIVIDAD MADE AWARE. PER PRIMARY RN, [facility] HANSON WILL TOOLROOM HELPER THE PATIENT AT 1500 PM.
[2019-06-17 12:00] VITALS: BP 124/75
--- NOTE | 2019-06-17 14:30 | NUR ---
ADMINISTERED PNA VACCINE IM VIA LEFT DELTOID.
--- NOTE | 2019-06-17 15:38 | NUR ---
TRANSPORTER CAME BY HERSELF AND TOLD US THAT WE NEEDED TO HELP HER GET PATIENT IN [place]. MADE HER AWARE THAT IT IS A LIABILITY AND WE TYPICALLY WHEEL PATIENT TO FRONT OF HOSPITAL WHERE TRANSPORTATION AND ASSISTANCE SHOULD BE COVERED. SHE SAID SHE WILL TOUCH BASE WITH ADMINISTRATION AND GET BACK TO ME. IV LINE HAS ALREADY BEEN REMOVED, CANNULA INTACT.
[2019-06-17 16:00] VITALS: BP 117/58
--- NOTE | 2019-06-17 16:55 | NUR ---
MARKETING AUTOMATION MANAGER WITH [employer] AT 1999. PRIMARY RN AND CHARGE NURSE MADE AWARE.
--- NOTE | 2019-06-17 19:30 | NUR ---
RECEIVED PT FROM KATHRINE SLADE PT AOX1 [facility] BE [facility]
--- NOTE | 2019-06-17 21:45 | NUR ---
AT 2145 REPORT GIVEN TO [facility] AND ALL PROTOCOL FOR DISCHARGE GIVEN PT LEAVING ON STABLE CODITION VSS
== END 2019-06-17 21:50 | disposition home or self-care (01) | DRG 917 ==
LOC: MED 11:56 → MTU 15:30
PROVIDERS: ADMIT General Practice; ATTEND General Practice
DX: T42.4X1A Poisoning by benzodiazepines, accidental (unintentional), initial encounter (principal); G92 Toxic encephalopathy; E87.0 Hyperosmolality and hypernatremia; G30.9 Alzheimer's disease, unspecified; F02.80 Dementia in other diseases classified elsewhere, unspecified severity, without behavioral disturbance, psychotic disturbance, mood disturbance, and anxiety; E78.5 Hyperlipidemia, unspecified; I10 Essential (primary) hypertension; Z66 Do not resuscitate; K59.09 Other constipation; D63.8 Anemia in other chronic diseases classified elsewhere; E83.39 Other disorders of phosphorus metabolism; E87.6 Hypokalemia; K72.90 Hepatic failure, unspecified without coma; Z88.0 Allergy status to penicillin; Z91.041 Radiographic dye allergy status; Y92.89 Other specified places as the place of occurrence of the external cause
CPT/HCPCS: 36415; 70450; 71045; 80048; 80053; 81001; 82140; 83036; 83605; 83735; 83880; 84100; 84439; 84443; 84484; 85025; 85610; 85730; 87040; 87081; 87086; 90732; 92610; 93005; 93880; 99285; C1758; J1644; J2001; J3475; J3480; J7030; Q0092

== ENCOUNTER 2020-03-30 17:24 | Emergency (ER) | payer OTHER, BC, MEDICAID ==
[~2020-03-30] VITALS: Ht 170.2 cm; Wt 72.6 kg
[~2020-03-30 17:24] MED LIST changes: +ACET-2619 PO; +ATOR20TA40 PO; +BENZ-196 PO; -DOCU100C16 PO; -QUET25TA PO
[2020-03-30 17:45] VITALS: BP 158/70
--- NOTE | 2020-03-30 17:52 | NUR ---
PT MOVED TO BED 6 BY EMS.
--- NOTE | 2020-03-30 17:56 | NUR ---
75 Y/O FEMALE BIBA FROM [facility] WITH APPROX 1 INCH LACERATION TO OCCIPUT S/P MECHANICAL FALL. DENIES LOC, BLEEDING CONTROLLED. PER EMS PT TAKES ASPIRIN DAILY. GCS 14, BASELINE FOR PT. AWAKE AND RESPONSIVE TO NAME. VSS MEDHX: HTN, DEMENTIA, SCHIZOPHRENIA
--- NOTE | 2020-03-30 18:04 | NUR ---
DR BEAL AT BEDSIDE EXAMINING PT
--- NOTE | 2020-03-30 18:33 | NUR ---
PT TO CT VIA ABIGAIL
[2020-03-30 18:38] LABS: BASOPHILS % (AUTO) 0.6 % (0.0-2.0); EOSINOPHILS # (AUTO) 0.1 K/uL (0-0.4); HEMOGLOBIN 11.9 g/dL (12.0-16.0); LYMPHOCYTES # (AUTO) 1.8 K/uL (2.5-16.5); LYMPHOCYTES % (AUTO) 30.5 % (20.5-51.1); MEAN CORPUSCULAR HEMOGLOBIN 32 pg (27-31); MEAN CORPUSCULAR HGB CONC 32 g/dL (33-37); MEAN CORPUSCULAR VOLUME 99.3 fL (80-94); MONOCYTES # (AUTO) 0.3 K/uL (0.8-1.0); MONOCYTES % (AUTO) 5.8 % (1.7-9.3); NEUTROPHILS # (AUTO) 3.5 K/uL (1.8-7.7); NEUTROPHILS % (AUTO) 61.1 % (42.2-75.2); PLATELET COUNT (AUTO) 147 K/uL (140-450); RED BLOOD CELL COUNT(AUTO) 3.73 MIL/uL (4.20-5.40); RED CELL DISTRIBUTION WIDTH 14.6 % (11.6-13.7); WHITE BLOOD COUNT (AUTO) 5.8 K/uL (4.8-10.8)
[2020-03-30 19:06] LABS: ALBUMIN 3.7 g/dL (3.4-5.0); ANION GAP 12.4 (8-16); ASPARTATE AMINOTRANSFERASE 11 U/L (15-37); CARBON DIOXIDE 28.3 mmol/L (21-32); CHLORIDE 112 mmol/L (98-107); CREATININE 0.9 mg/dL (0.6-1.3); GLUCOSE 104 mg/dL (74-106); POTASSIUM 3.7 mmol/L (3.5-5.1); SODIUM SERUM 149 mmol/L (136-145); TOTAL BILIRUBIN 0.4 mg/dL (0.0-1.0); UREA NITROGEN, BLOOD 24 mg/dL (7-18)
[2020-03-30] MEDS ORDERED: LIDOCAINE MPF 1% 10 MG/ML VIAL INJ ONE (19:10)
[2020-03-30 19:13] LABS: PROTHROMBIN TIME 9.9 secs (10.8-13.4)
--- NOTE | 2020-03-30 19:19 | NUR ---
Mey de leon in [facility] - 03/30/20 at 1920 by [email or web address] RECIEVED REPORT FROM YANY NAZARIO. TRANSFER OF CARE AT THIS TIME.
--- NOTE | 2020-03-30 19:19 | NUR ---
REPORT GIVEN TO YANY RICHARD. TRANSFER OF CARE AT THIS TIME
--- NOTE | 2020-03-30 19:22 | NUR ---
RECIEVED REPORT FROM YANY NAZARIO. TRANSFER OF CARE AT THIS TIME.
--- NOTE | 2020-03-30 19:22 | NUR ---
LIDOCAINE PLACED AT BEDSIDE
--- NOTE | 2020-03-30 19:27 | NUR ---
CLEANED AND IRRAGATED PT'S HEAD LAC WITH NS AND BETADINE AND PREP IT FOR ER PHYSICIAN TO STAPLE WIHTOUT INCIDENT.
--- NOTE | 2020-03-30 20:09 | NUR ---
CALL MADE TO FAMILY MEMBER -- ON HER WAY TO AGRICULTURE DEPARTMENT CHAIR PATIENT.
[2020-03-30 20:32] VITALS: BP 143/70
--- NOTE | 2020-03-30 20:32 | NUR ---
Patient discharged with v/s stable. Written and verbal after care instructions given and explained. Patient verbalized understanding. Ambulatory with steady gait. All questions addressed prior to discharge. Advised to follow up with PMD.
== END 2020-03-30 20:32 | disposition home or self-care (01) ==
LOC: MED 17:24
DX: S01.01XA Laceration without foreign body of scalp, initial encounter (principal); F03.90 Unspecified dementia, unspecified severity, without behavioral disturbance, psychotic disturbance, mood disturbance, and anxiety; F20.9 Schizophrenia, unspecified; I10 Essential (primary) hypertension; Z79.899 Other long term (current) drug therapy; Z88.0 Allergy status to penicillin; Z88.8 Allergy status to other drugs, medicaments and biological substances; W18.39XA Other fall on same level, initial encounter; Y93.89 Activity, other specified; Y92.89 Other specified places as the place of occurrence of the external cause; Y99.8 Other external cause status
CPT/HCPCS: 12011; 36415; 70450; 72125; 80053; 85025; 85610; 85730; 90471; 90715; 93005; 99285; J2001

== ENCOUNTER 2020-06-28 07:47 | Emergency (ER) | payer OTHER, MEDICAID, BC ==
[~2020-06-28] VITALS: Ht 170.2 cm; Wt 61.2 kg
[2020-06-28 07:52] VITALS: BP 152/88
--- NOTE | 2020-06-28 07:59 | NUR ---
75 YO FEMALE BIBA FOR POSSIBLE INSECT BITE ON RIGHT SIDE FOREHEAD SINCE LAST NIGHT. AREA IS SWOLLEN WITH NO BRUISING OR BLEEDING OBSERVED. PT IS UNABLE TO COMMUNICATE WHAT HAPPENED D/T DEMENTIA. PT DOES MOVE AWAY AND GRIMMACE WHENT HE AREA IS PALPATED. PMH: DEMENTIA, ANXIETY AND SCHIZO EFFECTIVE
--- NOTE | 2020-06-28 08:30 | NUR ---
MOVED PT TO BED 6 D/T PT TRYING TO CLIMB OUT OF BED
--- NOTE | 2020-06-28 08:36 | NUR ---
PT TAKEN TO CT VIA ABIGAIL
--- NOTE | 2020-06-28 09:10 | NUR ---
DAUGHTER-IN LAW AT BEDSIDE AND AGREED TO TAKE PT BACK TO [facility].
[2020-06-28 09:17] VITALS: BP 152/88
== END 2020-06-28 09:18 | disposition home or self-care (01) ==
LOC: MED 07:47
DX: S00.86XA Insect bite (nonvenomous) of other part of head, initial encounter (principal); F03.90 Unspecified dementia, unspecified severity, without behavioral disturbance, psychotic disturbance, mood disturbance, and anxiety; I10 Essential (primary) hypertension; Z88.0 Allergy status to penicillin; Z88.1 Allergy status to other antibiotic agents; Z79.899 Other long term (current) drug therapy; W57.XXXA Bitten or stung by nonvenomous insect and other nonvenomous arthropods, initial encounter; Y93.89 Activity, other specified; Y92.89 Other specified places as the place of occurrence of the external cause; Y99.8 Other external cause status
CPT/HCPCS: 70450; 99284

== ENCOUNTER 2020-07-05 14:11 | Inpatient (IN) | payer OTHER, MEDICAID, BC, SELFPAY ==
[~2020-07-05] VITALS: Ht 170.2 cm; Wt 58.1 kg
--- NOTE | 2020-07-05 14:11 | NUR ---
PATIENT BIBA BLS TO ER BED 10
[2020-07-05 14:18] VITALS: BP 146/66
--- NOTE | 2020-07-05 14:38 | NUR ---
DR. MAGAÑA EVALUATING PT AT BEDSIDE
--- NOTE | 2020-07-05 14:42 | NUR ---
75/F EDKrystle FROM [facility] C/O LETHARGY X TODAY AM. USUALLY PT AMBULATES AROUND FACILITY IN AM BUT TODAY JUST REMAINED IN BED. USUALLY FIGHTS STAFF WHEN CHANGING PT BUT TODAY DID NOT DO SO. EMS FOUND PT 88% ON RA, SO PLACED PT ON 3L NC. NO COUGH OR FEVER PER EMS. PER EMS REPORT, PT IS NONVERBAL HOWEVER PT IS MUMBLING/INCOMPREHENSIBLE AT THIS TIME. HX- SCHIZOPHRENIA, DEMENTIA, ANXIETY
--- NOTE | 2020-07-05 14:43 | NUR ---
PER DR. MAGAÑA, TAKE PT OFF NC NOW FOR ABG COLLECTION. PT PUT ON RA AT THIS TIME.
--- NOTE | 2020-07-05 14:55 | NUR ---
LABS DRAWN BEDSIDE AND HANDED TO [facility]
--- NOTE | 2020-07-05 14:58 | NUR ---
EMT AT BEDSIDE FOR EKG
[2020-07-05 15:11] LABS: BASOPHILS % (AUTO) 0.2 % (0.0-2.0); HEMATOCRIT 39.3 % (36-48); HEMOGLOBIN 12.6 g/dL (12.0-16.0); LYMPHOCYTES # (AUTO) 0.7 K/uL (2.5-16.5); LYMPHOCYTES % (AUTO) 15.9 % (20.5-51.1); MEAN CORPUSCULAR HEMOGLOBIN 32 pg (27-31); MEAN CORPUSCULAR HGB CONC 32 g/dL (33-37); MEAN CORPUSCULAR VOLUME 98.4 fL (80-94); MONOCYTES # (AUTO) 0.2 K/uL (0.8-1.0); MONOCYTES % (AUTO) 5.4 % (1.7-9.3); NEUTROPHILS # (AUTO) 3.6 K/uL (1.8-7.7); NEUTROPHILS % (AUTO) 78.5 % (42.2-75.2); PLATELET COUNT (AUTO) 104 K/uL (140-450); WHITE BLOOD COUNT (AUTO) 4.6 K/uL (4.8-10.8)
--- NOTE | 2020-07-05 15:11 | NUR ---
RT NOTIFIED FOR ABG ORDER
[2020-07-05 15:20] LABS: ALBUMIN 3.4 g/dL (3.4-5.0); ANION GAP 12.5 (8-16); ASPARTATE AMINOTRANSFERASE 32 U/L (15-37); CARBON DIOXIDE 30.1 mmol/L (21-32); CHLORIDE 114 mmol/L (98-107); CREATININE 1.1 mg/dL (0.6-1.3); GLUCOSE 142 mg/dL (74-106); POTASSIUM 3.6 mmol/L (3.5-5.1); SODIUM SERUM 153 mmol/L (136-145); TOTAL BILIRUBIN 0.6 mg/dL (0.0-1.0); UREA NITROGEN, BLOOD 20 mg/dL (7-18)
--- NOTE | 2020-07-05 15:22 | NUR ---
X-Ray at bedside.
[2020-07-05 15:32] LABS: PROTHROMBIN TIME 9.3 secs (10.8-13.4)
[2020-07-05] MEDS ORDERED: ALUM355S5 PO (15:37)
[2020-07-05] MEDS ORDERED: CALC-1626 PO (15:37)
[2020-07-05] MEDS ORDERED: MIRT15TA PO (15:37)
[2020-07-05] MEDS ORDERED: LORA-476 PO (15:37)
--- NOTE | 2020-07-05 15:49 | NUR ---
RT AT BEDSIDE FOR ABG
--- NOTE | 2020-07-05 15:56 | NUR ---
KAMINI GRACE COLLECTED AND DROPPED OFF AT LAB
--- NOTE | 2020-07-05 16:01 | NUR ---
RT UNABLE TO OBTAIN ABG, WILL GET ANOTHER RT TO COME TRY. PT ON RA, SATURATING 92% AT THIS TIME.
[2020-07-05] MEDS ORDERED: NACL 0.9% 1,000 ML IV ONE (16:30)
--- NOTE | 2020-07-05 16:50 | NUR ---
NOTIFIED DR. MAGAÑA OF TEMP 101.0 ORAL, DR. MAGAÑA TO ORDER RECTAL TYLENOL.
[2020-07-05 16:59] LABS: APPEARANCE,URINE CLEAR (CLEAR); BILIRUBIN,URINE NEGATIVE (NEGATIVE); BLOOD, URINE 2+ (NEGATIVE); COLOR,URINE YELLOW (YELLOW); LEUKOCYTE ESTERASE ,URINE NEGATIVE (NEGATIVE); NITRITE, URINE POSITIVE (NEGATIVE); UGLUCOSE NEGATIVE (NEGATIVE)
[2020-07-05] MEDS ORDERED: AZITHROMYCIN 1,000 MG in DEXTROSE 5% 500 ML IV ONE (17:00)
[2020-07-05] MEDS ORDERED: ACETAMINOPHEN 650 MG SUPP RC ONE (17:00)
--- NOTE | 2020-07-05 17:00 | NUR ---
STOPPED NS INFUSION AT THIS TIME PER DR. MAGAÑA ORDERS.
[2020-07-05] MEDS ORDERED: LEVOFLOXACIN 500 MG/D5W PREMIX 100 ML IV ONE (17:05)
[2020-07-05] MEDS ORDERED: AZITHROMYCIN 500 MG INJ VIAL IV ONE (17:08)
[2020-07-05 17:18] LABS: WBC,URINE 0-5 /HPF (0-5)
--- NOTE | 2020-07-05 17:53 | NUR ---
UPDATED YOGESH MCKEON (PERSON TO NOTIFY) ON PT CONDITION AND PLANS FOR ADMISSION
[2020-07-05] MEDS ORDERED: ALBUTEROL HFA MDI 90 MCG/ACTUATION 8 GM INH PRN ×2 (18:25→18:45)
[2020-07-05] MEDS ORDERED: POTASSIUM CHLORIDE 10 MEQ TABER PO PRN ×2 (18:25→18:45)
[2020-07-05] MEDS ORDERED: DOCUSATE SODIUM 100 MG GELCAP PO PRN ×2 (18:25→18:45)
[2020-07-05] MEDS ORDERED: HYDROcodone/APAP 7.5/325 MG 1 TAB PO PRN ×2 (18:25→18:45)
[2020-07-05] MEDS ORDERED: ONDANSETRON 4 MG/2 ML VIAL IM/IVP PRN ×2 (18:25→18:45)
[2020-07-05] MEDS ORDERED: ACETAMINOPHEN 325 MG TAB PO PRN ×2 (18:25→18:45)
[2020-07-05] MEDS ORDERED: NACL 0.9% 1,000 ML IV SCH (18:25)
[2020-07-05] MEDS: NACL 0.9% 1,000 ML IV SCH (18:45)
--- NOTE | 2020-07-05 18:55 | NUR ---
PT RECEIVED AT THIS TIME FROM [facility]. AOX 1 PT IS STABLE WITH IV ACCESS TO LEFT AC THAT IS INTACT AND PATENT PT WAS RECONNECTED BACK TO IV PUMP AND IS CURRENTLY RUNNING ZITHROMAX AT 250ML/HR. PT REMAINS ON 3 L NC AT 96-97% NO SOB PT HAS INTACT SKIN. BELONGINGS INCLUDED CLOTHES NO VALUABLES. SAFETY MEASURES INITIATED. PT ORIENTED TO ROOM, REMOTE AND CALL LIGHT. PT APPEARS SLIGHTLY IRRITABLE SELECTIVITY MUTE AT TIMES, THEN MUMBLES TO SELF. ADMISSION WILL BE ENDORSED TO NUTRITION TECHNICIAN
--- NOTE | 2020-07-05 18:56 | NUR ---
Patient will be admitted to care of DR. ARDON. Admited to TELE. Will go to room 117. Belongings list completed. Report to KONG SLADE.
[2020-07-05 19:08] LABS: FREE T4 (FREE THYROXINE) 0.78 ng/dL (0.76-1.46); MAGNESIUM 2.3 mg/dL (1.8-2.4); PHOSPHORUS 2.8 mg/dL (2.5-4.9); THYROID STIMULATING HORMONE 0.91 uIU/mL (0.34-3.74)
--- NOTE | 2020-07-05 19:25 | NUR ---
REPORT ENDORSED TO AMMUNITION ASSEMBLY II LABORER AM. PT IS STABLE LAYING IN BED RECEIVING IVF WITH NO ISSUES.
--- NOTE | 2020-07-05 19:25 | NUR ---
RECEIVED REPORT FROM KAM RNKONG. PT AOX0 ON 3L N/C, O2 SAT 95%. PT MUMBLES, INCOMPREHENSIBLE SPEECH, WITHDRAWS TO PAIN, EYES OPEN TO VOICE AND SHAKING. NO S/S RESPIRATORY DISTRESS. FLACC 0. IV SITE LAC 20G PATENT AND INTACT INFUSING ZITHROMAX AT 250 ML/HR. SKIN WARM DRY INTACT, BOWEL SOUNDS ACTIVE. SAFETY MEASURES IN PLACE. CALL LIGHT WITHIN REACH. WILL CONTINUE TO MONITOR
[2020-07-05] MEDS ORDERED: LORazepam 1 MG TAB PO PRN (19:55)
[2020-07-05] MEDS ORDERED: ALUMINUM HYD/MAG/SIMETHICONE 30 ML UDC PO PRN (19:55)
[2020-07-05] MEDS ORDERED: MAGNESIUM HYDROXIDE 2400 MG/30 ML UDC PO PRN (19:55)
[2020-07-05 20:00] VITALS: BP 114/64
[2020-07-05] MEDS: FERROUS SULFATE 325 MG TABEC PO SCH (21:00)
[2020-07-05] MEDS: MIRTAZAPINE 15 MG TAB PO SCH (21:00)
--- NOTE | 2020-07-05 21:40 | NUR ---
PT SEEN AND ASSESSED. PT IS ON 2L NASAL CANNULA WITH SPO2 OF 95%. PT IS IN NO APPARENT RESPIRATORY DISTRESS AT THIS TIME. RN AT BEDSIDE. WILL CONTINUE TO MONITOR PT.
--- NOTE | 2020-07-05 22:50 | NUR ---
PT ASLEEP IN BED. NO S/S RESPIRATORY DISTRESS, O2 SAT 94%. WILL CONTINUE TO MONITOR
[2020-07-06] VITALS: BP 127/49
--- NOTE | 2020-07-06 00:45 | NUR ---
CLEANED, CHANGED, REPOSITIONED PT, TOLERATED WELL. NO DISTRESS NOTED. WILL CONTINUE TO MONITOR
--- NOTE | 2020-07-06 03:29 | NUR ---
PT AWAKE IN BED, MUMBLING. AOX1 TO NAME. O2 SAT 95%. NO DISTRESS NOTED. WILL CONTINUE TO MONITOR
[2020-07-06 04:00] VITALS: BP 138/57
--- NOTE | 2020-07-06 05:10 | NUR ---
PT ASLEEP IN BED. RESPIRATIONS EVEN AND UNLABORED. NO DISTRESS NOTED. WILL CONTINUE TO MONITOR
--- NOTE | 2020-07-06 07:15 | NUR ---
ENDORSED PT TO DAY RN FOR CONTINUITY OF CARE. PT IS IN STABLE CONDITION
--- NOTE | 2020-07-06 07:16 | NUR ---
RECEIVED ENDORSEMENT FROM PROPERTY PORTFOLIO OFFICER, AWAKE, ALERT BUT INCOHERENT, BREATHING SPONTANEOUSLY WITH O2 AT 2L/MIN VIA NC, NOT IN DISTRESS NOTED. WITH ONGOING IV FLUID WITH 0.9%NS AT 60ML/HOUR INFUSING AT LEFT AC, G20 IV CANNULA NOTED. ON DROPLET ISOLATION DX WITH COVID POSITIVE. SAFETY MEASURES IN PLACE AND CONTINUE MONITOR.
[2020-07-06 08:00] VITALS: BP 142/51
--- NOTE | 2020-07-06 08:54 | NUR ---
PATIENT HAS BEEN SCREENED AND CATEGORIZED MODERATE NUTRITION RISK. PATIENT WILL BE SEEN WITHIN 3-5 DAYS OF ADMISSION. 07/08/20 07/10/[address]
[2020-07-06] MEDS ORDERED: CYANOCOBALAMIN 1000 MCG PO SCH (09:00)
[2020-07-06] MEDS ORDERED: ZINC SULF 220 MG CAP PO SCH (09:00)
[2020-07-06] MEDS ORDERED: ASCORBIC ACID 500 MG TAB PO SCH (09:00)
[2020-07-06] MEDS ORDERED: DEXAMETHASONE 4 MG TAB PO SCH ×2 (09:00)
--- NOTE | 2020-07-06 09:43 | NUR ---
PLATELET-104, DR. MORTON INFORMED THRU TEXT MESSAGES IF CAN GIVE DUE HEPARIN 500UNITS SUBQ Q12H, HE REPLIED TO GIVE FOR TODAY, HIS PARAMETER OF GIVING HEPARIN LESS THAN 100, NOTED
[2020-07-06] MEDS: CALCIUM CARB/VIT-D 500 MG/200 IU 1 TAB PO SCH ×2 (10:02→21:48)
[2020-07-06] MEDS: FERROUS SULFATE 325 MG TABEC PO SCH ×2 (10:02→21:48)
[2020-07-06] MEDS: MEMANTINE 10 MG TAB PO SCH (10:02)
[2020-07-06] MEDS: ZINC SULF 220 MG CAP PO SCH (10:02)
[2020-07-06] MEDS: CYANOCOBALAMIN 1,000 MCG TAB PO SCH (10:03)
[2020-07-06] MEDS: FOLIC ACID 1 MG TAB PO SCH ×3 (10:04→17:37)
[2020-07-06] MEDS: ASCORBIC ACID 500 MG TAB PO SCH (10:04)
[2020-07-06] MEDS: ESCITALOPRAM 20 MG TAB PO SCH (10:05)
[2020-07-06] MEDS ORDERED: CRUSHER, PILL MC ONE (10:06)
--- NOTE | 2020-07-06 10:15 | NUR ---
MEDICATION GIVEN WITH APPLE SAUCE, TOLERATED WELL. NOVEL SHARMA SWAB TEST DONE AND SENT TO LAB
--- NOTE | 2020-07-06 11:22 | NUR ---
SAFE DEPOSIT BOX RENTAL CLERK NOTE: Patient's Orientation Unable To Assess Information Provided By YOGESH MCKEON - DAUGHTER Comments SW WAS UNABLE TO MEET PATIENT AT BEDSIDE. SW CONTACTED DAUGHTER TO COMPLETE ASSESSMENT. Store Planner, Realtionship and Phone Number YOGESH MCKEON DAUGHTER [phone] MASSIEL MCKEON SON [phone] Healthcare Power of Bus Cleaner No Does Patient Have a POLST No Identifying Problems No Social Work Triggers Is A Social Work Consult Needed No Mandate Report Filed No Explanation Of Identifying Problems PATIENT IS A 75-YEAR-OLD FEMALE ADMITTED FOR COVID AND HYPOXIA. PATIENT HAS PMHX DEMENTIA AND HYPERTENSION. PATIENT WAS ADMITTED FROM [facility] [phone]. Admitted From Assisted Living/Resident Pre-Admission Level Of Functioning Status Total Care Level Of Functioning Comment PER SON, PATIENT REQUIRES TOTAL ASSISTANCE WITH ADLS. Prior Resources/Services Used In Last 12 Months Assisted Living Prior DME Hospital Bed Dialysis Comments SON REPORTED THAT PATIENT DOES NOT RECEIVE DIALYSIS. Living Situation Asst'd Living/Board &Care Patient Had Caregiver No Home Support No Caregiver Issues Financial Issues No Known Financial Issue Referral To The Financial Counselor Needed No Factors/Needs No D/C Needs Identified Explanation And Or Other Factors Affecting/Possible DC Needs PATIENT'S DAUGHTER STATED SHE PREFERRED PATIENT RETURN TO [facility]. Pt/Rep Participated In Discharge Plan Yes Patient/Family Agress With Discharge Plan Yes Discharge Plan Comments TENTATIVE DISCHARGE PLAN IS FOR PATIENT TO RETURN TO [facility]. DC Plan Status Initiated
[2020-07-06 12:00] VITALS: BP 125/71
[2020-07-06] MEDS: NACL 0.9% 1,000 ML IV SCH (12:44)
--- NOTE | 2020-07-06 12:44 | NUR ---
ABOVE IV FLUID CONSUMED AND FOLLOWED BY SAME IF FLUID AT SAME RATE. DUE MEDICATION GIVEN WITH APPLE SAUCE, KEPT COMFORTABLE TO BED.
--- NOTE | 2020-07-06 15:00 | NUR ---
TELEPHONE CONSENT OBTAINED FROM THE SON FOR TRANSFUSION OF 1 UNIT [facility] AND AGREED WITH THE PROCEDURE.
--- NOTE | 2020-07-06 15:03 | NUR ---
KUSUM RAIL CAR LOADER: PATIENT IS FROM [facility], HOWEVER THIS PATIENT IS COVID POSITIVE AND WILL NOT BE ABLE TO RETURN TO [facility] AT THIS TIME. PATIENT WILL NEED SNF. FAXED PATIENTS CLINICALS TO [facility] Addendum: 07/07/20 at 1116 by Deepti Xiong CM KUSUM RAIL CAR LOADER: SPOKE TO PATIENTS DAUGHTER REGARDING PLANS OF DISCHARGE. DISCUSSED OPTIONS OF SNFS THAT ARE CONTRACTED WITH THE PATIENTS INSURANCE AND ACCEPTING COVID PATIENTS. DAUGHTERS PREFERENCE IS [facility]. WILL FAX PATIENTS CLINICALS. Addendum: 07/11/20 at 1041 by Deepti Xiong CM KUSUM RAIL CAR LOADER: PATIENT CAN DISCHARGE TODAY TO [facility] ROOM 112-[address]. [facility] DOES NOT HAVE ANY AVAILABLE TRANSPORTATION FOR COVID PATIENTS IN OUR AREA TODAY. CONTACTED [facility] AND SPOKE TO MAGNOLIA [phone], SHE IS WORKING ON SETTING UP TRANSPORTATION. SPOKE TO NATAN AT [facility] SHE CAN NOT PROVIDE TRANSPORTATION TODAY BECAUSE THEIR RUNNING SPECIALIST IS BUSY TODAY TAKING PATIENTS TO APPOINTMENTS. Addendum: 07/11/20 at 1105 by Deepti Xiong CM KUSUM KLINE: SPOKE TO CHRISTEL REGARDING TRANSPORTATION SHE CONTACTED HER FILLER MIXER REGARDING [facility]. HE SAID THAT [facility] IS IN THE PROCESS OF SETTING UP TRANSPORTATION AND WILL BE CALLING ME BACK WITH ETA. Addendum: 07/11/20 at 1158 by Deepti Xiong CM KUSUM KLINE: PATIENT WILL BE PICKED UP BETWEEN 1:30M -2:00 PM BY [facility]. NOTIFIED YANY GONSALVES Addendum: 07/11/20 at 1159 by Deepti Xiong CM KUSUM KLINE: RM [address] [place] [address] . Addendum: 07/11/20 at 1207 by Deepti Xiong CM KUSUM KLINE: PETTY ESPINAL AT [facility] THAT PATIENT IS DISCHARGING TO [facility]. Addendum: 07/11/20 at 1211 by Deepti Xiong CM DC RAIL CAR LOADER: NOTIFIED PATIENTS WILLIS PIERCE THAT HIS MOTHER WILL BE DISCHARGING TODAY TO [facility]. Addendum: 07/11/20 at 1425 by Deepti Xiong CM KUSUM RAIL CAR LOADER: FOLLOWED UP WITH [facility] [phone] THEY HAD TO RE-ROUTE DUE TO THE [address] BEING SHUT DOWN. THE NEW ETA IS 2:50 PM
--- NOTE | 2020-07-06 15:08 | NUR ---
CONSENT FO TRANSFUSION FAXED TO DR. MORTON, AWAITING FOR REPLY.
[2020-07-06 16:00] VITALS: BP 145/80
--- NOTE | 2020-07-06 16:19 | NUR ---
BLOOD EXTRACTED BY ASSET AVAILABILITY LEADER FOR TYPE AND SCREEN
--- NOTE | 2020-07-06 17:18 | NUR ---
BLOOD BANK STAFF CALLED, [facility] NOT YET AVAILABLE, THEY WILL CALL [facility] FOR INVENTORY. ONCE AVAILABLE THEY INFORM THE NURSE ASSIGN TO THE PATIENT
--- NOTE | 2020-07-06 18:12 | NUR ---
DINNER SERVED, FEEDING ASSISTED BY CRISTY
--- NOTE | 2020-07-06 19:18 | NUR ---
ENDORSED TO WANT AD CLERK IN STABLE CONDITION FOR CONTINUITY OF CARE
--- NOTE | 2020-07-06 19:20 | NUR ---
RECEIVED PT FROM AM SHIFT. PT SEEN AND ASSESSED. PT IS ON 2L NASAL CANNULA WITH SPO2 OF 92%. PT IS IN NO APPARENT RESPIRATORY DISTRESS AT THIS TIME. INFORMED PT TO CALL RN OR FILM MASKER FOR PRN TX WHEN EXPERIENCING SHORTNESS OF BREATH. WILL CONTINUE TO MONITOR PT.
--- NOTE | 2020-07-06 19:30 | NUR ---
RECEIVED REPORT FROM GUZMAN AT BEDSIDE FOR CONTINUITY OF CARE, PT IN STABLE CONDITION.
[2020-07-06 20:00] VITALS: BP 125/59
--- NOTE | 2020-07-06 20:00 | NUR ---
PT IN BED HOB UP 35%, PT IS DROWSY BUT AROUSABLE TO NAME AND LIGHT SHAKING. SHE IS ON 2 LITERS VIA N/C. HER SKIN R B/P IS INTACT AND SHE HAS A LAC 20 GUAGE WHICH IS INTACT AND FLUSHED PATENT. PT RUNNING NORMAL SALINE AT 60MLS/HR. PT LUNG SOUNDS CLEAR AND DIMINISHED. ABDOMEN SOFT AND BOWEL SOUNDS HYPOACTIVE. V/S FOLLOWS: T 99.3 P 81 R 18 B/P 125/59 02 94% ON ROOM AIR. ALL DROPLET AND FALLS PRECAUTIONS IN PLACE.
--- NOTE | 2020-07-06 21:30 | NUR ---
PT GIVEN SCHEDULED MEDS CRUSHED WITH APPLE SAUCE,. PT ALSO ABLE TO DRINK APPLE JUICE AND MILK WITH ASSISTANCE. EDUCATION REGARDING ADMINISTERED MEDICATION WAS GIVEN , BUT PT UNABLE TO COMPREHEND. PT GIVEN COOLING MEASURES OF ICE PACKS AND LESS BLANKETS DUE TO INCREASED TEMPERATURE. ALL DROPLET AND FALLS PRECAUTIONS IN PLACE.
[2020-07-06] MEDS: MIRTAZAPINE 15 MG TAB PO SCH (21:48)
--- NOTE | 2020-07-06 22:00 | NUR ---
PT WAS REPOSITIONED IN BED. ALL FALLS AND DROPLET PRECAUTIONS IN PLACE.
[2020-07-07] VITALS: BP 140/62
--- NOTE | 2020-07-07 | NUR ---
PT IN BED RESTING WITH EYES CLOSED. PT WAS TURNED, CHANGED AND REPOSITIONED IN BED. IV SITE INTACT AND RUNNING NORMAL SALINE AT 60MLS/HR. PT CONTINUES ON 2 LITERS 02 VIA N/C. V/S FOLLOWS: T 97.8 P 60 R 18 B/P 140/62 02 96% ON 2 LITERS VIA N/C. ALL FALLS AND DROPLET PRECAUTIONS IN PLACE.
[2020-07-07 04:00] VITALS: BP 137/86
--- NOTE | 2020-07-07 04:00 | NUR ---
PT WAS TURNED, CHANGED AND REPOSITIONED IN BED V/S FOLLOWS: T 97.6 P 58 R 20 B/P 137/86 02 94% ON 2 LITERS VIA N/C. ALL DROPLET AND FALLS PRECAUTIONS IN PLACE,.
[2020-07-07] MEDS: NACL 0.9% 1,000 ML IV SCH ×2 (04:05→20:04)
--- NOTE | 2020-07-07 07:10 | NUR ---
RECEIVED REPORT FROM PM RNELEAZAR. PT CAME FROM [facility]. CC: LETHERGY, GEN WEAKNESS. DX: PNEUMONIA, COVID 19, HYPOXIA. HX: HTN, DEMENTIA, PSYCHOSIS, ANEMIA, SCHIZOPHRENIA, ANXIETY, HYPERLIPIDEMIA, ALZHEIMER, BIPOLAR. ALLERGIES: PCN, IODINE. PT IS DNR. IV: LAC 20G RUNNING NS AT 60. DIET: REGUALR PUREE, MEDS CRUSHED AND MIXED WITH APPLESAUCE, PT REQUIRES FEEDER. PT IS A&OX1. PT IS ON 2L NC SATING BETWEEN 94-97%. PT IS INCONTINENT. SKIN IS INTACT. PLAN: GIVE 1 UNITS OF PLASMA, MONITOR TEMP, PENDING CONSULT, MONITOR LOW PLATELETS.
[2020-07-07 08:00] VITALS: BP 151/78
[2020-07-07 08:09] LABS: T4 (THYROXINE) 5.7 ug/dL (4.5-12.0)
[2020-07-07] MEDS: CALCIUM CARB/VIT-D 500 MG/200 IU 1 TAB PO SCH ×2 (09:02→20:04)
[2020-07-07] MEDS: FERROUS SULFATE 325 MG TABEC PO SCH ×2 (09:02→20:04)
[2020-07-07] MEDS: ZINC SULF 220 MG CAP PO SCH (09:02)
[2020-07-07] MEDS: MEMANTINE 10 MG TAB PO SCH (09:03)
[2020-07-07] MEDS: ESCITALOPRAM 20 MG TAB PO SCH (09:03)
[2020-07-07] MEDS: FOLIC ACID 1 MG TAB PO SCH ×3 (09:03→17:34)
[2020-07-07] MEDS: ASCORBIC ACID 500 MG TAB PO SCH (09:03)
[2020-07-07] MEDS: CYANOCOBALAMIN 1,000 MCG TAB PO SCH (09:05)
--- NOTE | 2020-07-07 09:30 | NUR ---
PASSED MEDS TO PT. CRUSHED AND MIXED IN APPLE SAUCE. VISIBLE RISE AND FALL OF CHEST. RESPIRATIONS ARE EVEN AND UNLABORED. NO SIGNS OF DISTRESS.
[2020-07-07] MEDS ORDERED: LOVENOX 1MG/KG Q12H SUBQ SCH (10:55)
[2020-07-07] MEDS ORDERED: ENOXAPARIN 60 MG/0.6 ML SYR SUBQ SCH (11:04)
[2020-07-07] MEDS ORDERED: CLINICAL MONITORING MC PRN (11:10)
--- NOTE | 2020-07-07 11:30 | NUR ---
COMPLETED ROUND. PT BECAME A LITTLE AGITATED. STARTED HITTING AND CURSING. WAS ABLE TO DISTRACT PT. PASSED MEDICATIONS. RESPIRATIONS ARE EVEN AND UNLABORED.
[2020-07-07 11:44] LABS: BASOPHILS % (AUTO) 0.3 % (0.0-2.0); HEMATOCRIT 34.7 % (36-48); HEMOGLOBIN 11.3 g/dL (12.0-16.0); LYMPHOCYTES % (AUTO) 13.8 % (20.5-51.1); MEAN CORPUSCULAR HEMOGLOBIN 32 pg (27-31); MEAN CORPUSCULAR HGB CONC 32 g/dL (33-37); MONOCYTES # (AUTO) 0.3 K/uL (0.8-1.0); MONOCYTES % (AUTO) 4.6 % (1.7-9.3); NEUTROPHILS # (AUTO) 5.7 K/uL (1.8-7.7); NEUTROPHILS % (AUTO) 81.3 % (42.2-75.2); PLATELET COUNT (AUTO) 110 K/uL (140-450); RED BLOOD CELL COUNT(AUTO) 3.54 MIL/uL (4.20-5.40); RED CELL DISTRIBUTION WIDTH 14.6 % (11.6-13.7)
[2020-07-07 12:00] VITALS: BP 159/66
[2020-07-07 12:10] LABS: ANION GAP 11.3 (8-16); CARBON DIOXIDE 27.2 mmol/L (21-32); CHLORIDE 111 mmol/L (98-107); CREATININE 0.9 mg/dL (0.6-1.3); GLUCOSE 86 mg/dL (74-106); POTASSIUM 3.5 mmol/L (3.5-5.1); SODIUM SERUM 146 mmol/L (136-145); UREA NITROGEN, BLOOD 18 mg/dL (7-18)
--- NOTE | 2020-07-07 13:30 | NUR ---
LAB CALLED. PT IS POSITIVE FOR ECOLI AND MDRO OF THE URINE. DR MORTON NOTIFIED. PLASTIC HOSPITAL PRODUCTS ASSEMBLER NOTIFIED. CONTACT PRECAUTIONS INITIATED.
[2020-07-07] MEDS: ENOXAPARIN 60 MG/0.6 ML SYR SUBQ SCH ×2 (14:08→20:07)
[2020-07-07 16:00] VITALS: BP 175/61
--- NOTE | 2020-07-07 16:00 | NUR ---
COMPLETED ROUND. PT IS RESTING IN BED. VISIBLE RISE AND FALL OF CHEST. NO SIGNS OF PAIN. RESPIRATIONS ARE EVEN AND UNLABORED.
--- NOTE | 2020-07-07 17:00 | NUR ---
LAB CALLED. PT PCR COVID [address] MORTON NOTIFIED. PLACED ORDER FOR CONSULT.
--- NOTE | 2020-07-07 17:28 | NUR ---
DR BARBOSA ORDERED ROCEPHEN FOR PT. PT HAS AN ALLERGY TO PCN. DR BARBOSA IS AWARE. PHARMACY IS AWARE. PHARMACY SUGGESTS TO MONITOR PT CLOSELY WHILE PASSING MEDICATION.
--- NOTE | 2020-07-07 18:04 | NUR ---
ROCEPHIN COMPLETE. NO SIGNS OF ALLERGIC REACTION. O2 SAT 93%. RESPIRATIONS ARE EVEN AND UNLABORED. NO SIGNS OF DISTRESS. PT DID NOT HAVE A REACTION TO ROCEPHIN.
--- NOTE | 2020-07-07 19:15 | NUR ---
TRANSFER OF CARE TO PM TAMARA SLADE. PT IS RESTING IN BED. NO SIGNS OF DISTRESS. VISIBLE RISE AND FALL OF CHEST. RESPIRATIONS ARE EVEN AND UNLABORED.
--- NOTE | 2020-07-07 19:16 | NUR ---
RECEIVED BEDSIDE REPORT FROM DAY RN. PT IS A&OX1 SELF. PT IS ON 2L NC SATING BETWEEN 94-97% PT KEEPS REMOVING NC SAT BETWEEN 88-91% ON RA. SKIN IS INTACT. PT CAME FROM [facility]. CC: LETHERGY, GEN WEAKNESS. DX: PNEUMONIA, COVID 19 +, HYPOXIA. HX: HTN, DEMENTIA, PSYCHOSIS, ANEMIA, SCHIZOPHRENIA, ANXIETY, HYPERLIPIDEMIA, ALZHEIMER, BIPOLAR. ALLERGIES: PCN, IODINE. PT IS DNR. IV: LAC 20G NS INFUSING AT 60ML/H. PT ON REGULAR/PUREE DIET IS A FEEDER. . PT IS INCONTINENT. DROPLET ISOLATION PER PROTOCOL SIGN AT DOOR. SAFETY MEASURES IN PLACE. POC DISCUSSED WITH PT. WILL CONTINUE TO MONITOR.
[2020-07-07 20:00] VITALS: BP 110/65
[2020-07-07] MEDS ORDERED: CRUSHER, PILL MC ONE (20:03)
[2020-07-07] MEDS: MIRTAZAPINE 15 MG TAB PO SCH (20:04)
--- NOTE | 2020-07-07 20:04 | NUR ---
CALLED LAB THEY WILL THAW PLASMA CONSENT IS IN CHART. VSS. DEBORAH MEDICATIONS CRUSHED AND GIVEN WITH APPLE SAUCE. PT TOLERATED WELL. MED EDUCATION GIVEN PT UNABLE TO COMPREHEND. SAFETY MEASURES ARE IN PLACE. CALL LIGHT IS WITHIN REACH.
--- NOTE | 2020-07-07 21:30 | NUR ---
PLASMA STARTED AT THIS TIME. PLASMA VERIFIED WITH 2 RNS. PRE-TRANSFUSION VS: 151/56 HR 64 98.7 RR 19 89 RA. POSSIBLE ADVERSE REACTION AND REASON FOR TRANSFUSION EXPLAINED TO PT. PT UNABLE TO COMPREHEND. REMAINS AAOX1. SAFETY MEASURES ARE IN PLACE. CALL LIGHT IS WITHIN REACH. WILL CONTINUE TO MONITOR CLOSELY.
--- NOTE | 2020-07-07 22:30 | NUR ---
PLASMA IS COMPLETE WITH NO INTERRUPTIONS. NO S/S OF ADVERSE REACTION. VSS. PT TOLERATED WELL. WILL CONTINUE TO MONITOR.
[2020-07-08] VITALS: BP 102/62
--- NOTE | 2020-07-08 | NUR ---
VITAL SIGNS ARE WITHIN NORMAL LIMITS. ALL SAFETY MEASURES ARE IN PLACE. WILL CONTINUE TO MONITOR.
--- NOTE | 2020-07-08 01:59 | NUR ---
ROUNDS MADE. PT REMAINS AAOX1. PT IS AWAKE NO S/S OF DISTRESS. LAYING COMFORTABLY IN BED CALL LIGHT IS WITHIN REACH. WILL CONTINUE TO MONITOR.
[2020-07-08 04:00] VITALS: BP 150/58
--- NOTE | 2020-07-08 04:10 | NUR ---
VSS. PT IS AWAKE LAYING COMFORTABLY IN BED LAUGHING AND MUMBLING UNABLE TO UNDERSTAND ANY WORDS. PT RESPONDS WHEN TALKED TO. PT REMAINS AAOX1. ALL SAFETY MEASURES ARE IN PLACE. CALL LIGHT IS WITHIN REACH. WILL CONTINUE TO MONITOR.
--- NOTE | 2020-07-08 06:00 | NUR ---
LAC IV REMOVED D/T LEAKING. IV CATH INTACT. ATTEMPT TO INSERT NEW IV X2 UNSUCCESSFUL. PT TOLERATED WELL. WILL ASK HIGH PRESSURE FIRER.
--- NOTE | 2020-07-08 06:10 | NUR ---
GOVERNMENT AFFAIRS DIRECTOR ATTEMPT TO START NEW IV X3 BUT, UNABLE TO START IV. PT TOLERATED WELL. PT IS CALM AND COOPERATIVE. WILL ASK ANOTHER RN. SAFETY MEASURES ARE IN PLACE.
--- NOTE | 2020-07-08 07:29 | NUR ---
GAVE BEDSIDE REPORT TO DAY RN. ENDORSED PT WITHOUT IV, RADIO TELEVISION TECHNICAL DIRECTOR AND ANOTHER RN ATTEMPTED WELL MYSELF. PT IS STABLE WITH ALL SAFETY MEASURES IN PLACE.
--- NOTE | 2020-07-08 07:31 | NUR ---
RECEIVED REPORT FROM NIGHT NURSE PATIENT IS AWAKE ON 2LPM OXYGEN VIA NC, INCONTINENT, SKIN INTACT,NO IV INSERTED, ON REGULAR PUREE DIET AND FEEDER. SAFETY MEASURES IN PLACE AND CALL LIGHT WITHIN REACH. WILL CONTINUE TO MONITOR.
--- NOTE | 2020-07-08 07:40 | NUR ---
RECEIVED REPORT FROM LABORATORY, PATIENT REFUSED BLOOD WORKS AND PATIENT IS A LITTLE COMBATIVE.
[2020-07-08 08:00] VITALS: BP 129/73
[2020-07-08] MEDS: FERROUS SULFATE 325 MG TABEC PO SCH ×2 (08:58→20:09)
[2020-07-08] MEDS: ASCORBIC ACID 500 MG TAB PO SCH (08:58)
[2020-07-08] MEDS: ZINC SULF 220 MG CAP PO SCH (08:59)
[2020-07-08] MEDS: MEMANTINE 10 MG TAB PO SCH (08:59)
[2020-07-08] MEDS: CALCIUM CARB/VIT-D 500 MG/200 IU 1 TAB PO SCH ×2 (09:00→20:09)
[2020-07-08] MEDS: CYANOCOBALAMIN 1,000 MCG TAB PO SCH (09:00)
[2020-07-08] MEDS: FOLIC ACID 1 MG TAB PO SCH ×3 (09:01→16:22)
[2020-07-08] MEDS: ESCITALOPRAM 20 MG TAB PO SCH (09:01)
[2020-07-08] MEDS: ENOXAPARIN 60 MG/0.6 ML SYR SUBQ SCH ×2 (09:03→20:10)
--- NOTE | 2020-07-08 09:24 | NUR ---
MEDICATION GIVEN AND CHECK VITAL SIGNS PRIOR TO MEDICATION BP 129/73 AK 75 PATIENT IS COOPERATIVE AND ABLE TO TOLERATE MEDICATIONS. NO DISTRESS NOTED, SAFETY MEASURES IN PLACE AND CALL LIGHT WITHIN REACH. WILL CONTINUE TO MONITOR.
--- NOTE | 2020-07-08 10:00 | NUR ---
RECEIVED PATIENT WITH MULTIPLE BRUISES ON BOTH UPPER EXTREMITIES DUE TO IV INSERTIONS AND PATIENT IS COMBATIVE. SAFETY MEASURES IN PLACE AND CALL LIGHT WITHIN REACH.
--- NOTE | 2020-07-08 10:29 | NUR ---
DR MORTON ORDERED FOR PICC LINE INSERTION AND CONSENT GIVEN BY WILLIS EMERSON ) VERIFIED BY 2 WITNESS HIGINIO CRUZ RN.
[2020-07-08 12:00] VITALS: BP 121/71
--- NOTE | 2020-07-08 12:50 | NUR ---
MIDLINE INSERTED AT THIS TIME AND PER PICC LINE NURSE CR NOTED MIDLINE IS OK TO USE.
--- NOTE | 2020-07-08 13:30 | NUR ---
MEDICATION DUE GIVEN AT THIS TIME PATIENT IS CALM NO DISTRESS NOTED
[2020-07-08] MEDS: NACL 0.9% 1,000 ML IV SCH (13:32)
[2020-07-08 16:00] VITALS: BP 132/49
--- NOTE | 2020-07-08 16:39 | NUR ---
MEDICATIONS DUE GIVEN AT THIS TIME AND LABORATORY ABLE TO DRAW BLOOD FOR BLOOD WORKS. SAFETY MEASURES IN PLACE CALL LIGHT WITHIN REACH.
[2020-07-08 16:41] LABS: BASOPHILS % (AUTO) 0.1 % (0.0-2.0); HEMATOCRIT 32.7 % (36-48); HEMOGLOBIN 10.7 g/dL (12.0-16.0); LYMPHOCYTES # (AUTO) 0.7 K/uL (2.5-16.5); LYMPHOCYTES % (AUTO) 8.7 % (20.5-51.1); MEAN CORPUSCULAR HEMOGLOBIN 31 pg (27-31); MEAN CORPUSCULAR HGB CONC 33 g/dL (33-37); MEAN CORPUSCULAR VOLUME 95.9 fL (80-94); MONOCYTES # (AUTO) 0.3 K/uL (0.8-1.0); NEUTROPHILS # (AUTO) 7.3 K/uL (1.8-7.7); NEUTROPHILS % (AUTO) 87.2 % (42.2-75.2); PLATELET COUNT (AUTO) 122 K/uL (140-450); RED BLOOD CELL COUNT(AUTO) 3.41 MIL/uL (4.20-5.40); RED CELL DISTRIBUTION WIDTH 14.2 % (11.6-13.7); WHITE BLOOD COUNT (AUTO) 8.4 K/uL (4.8-10.8)
[2020-07-08 16:49] LABS: ANION GAP 10.4 (8-16); CARBON DIOXIDE 29.3 mmol/L (21-32); CHLORIDE 103 mmol/L (98-107); CREATININE 0.9 mg/dL (0.6-1.3); GLUCOSE 149 mg/dL (74-106); POTASSIUM 3.7 mmol/L (3.5-5.1); SODIUM SERUM 139 mmol/L (136-145); UREA NITROGEN, BLOOD 19 mg/dL (7-18)
--- NOTE | 2020-07-08 17:48 | NUR ---
PATIENT ON ROOM AIR AND OXYGEN SATURATION AT 97%.
--- NOTE | 2020-07-08 19:13 | NUR ---
ENDORSED TO NIGHT NURSE FOR CONTINUITY OF CARE. PT IS STABLE
--- NOTE | 2020-07-08 19:15 | NUR ---
PATIENT RESTING IN BED COMFORTABLY. TELE PATIENT. AAOX1. RESPIRATIONS EVEN, UNLABORED. FLACC 0. NO S/S ACUTE DISTRESS. SKIN WARM, DRY. MIDLINE NOTED TO LEFT UPPER ARM PATENT/INTACT, INFUSING FLUIDS WELL. ABDOMEN SOFT, NONTENDER, NONDISTENDED. BOWEL SOUNDS ACTIVE X4 QUADRANTS. INCONTINENT OF B/B. PLAN OF CARE DISCUSSED. SAFETY PRECAUTIONS IN PLACE. ISOLATION PRECAUTIONS OBSERVED BY ALL STAFF.
[2020-07-08 20:00] VITALS: BP 128/59
--- NOTE | 2020-07-08 20:01 | NUR ---
PT SLEEPING COMFORTABLY RA W/ NO DISTRESS NOTED SPO2 95% HR 53 WILL CONTINUE TO MONITOR
[2020-07-08] MEDS: MIRTAZAPINE 15 MG TAB PO SCH (20:09)
--- NOTE | 2020-07-08 21:00 | NUR ---
PATIENT AWAKE. DUE MEDS GIVEN. FLACC 0. NO S/S ACUTE DISTRESS. CALL LIGHT WITHIN REACH. SAFETY PRECAUTIONS IN PLACE. ISOLATION PRECAUTIONS OBSERVED BY ALL STAFF.
--- NOTE | 2020-07-08 22:18 | NUR ---
PATIENT HAS A LOW HR OF 46. PATIENT SLEEPING VERY WELL AND AROUSABLE TO VERBAL/TACTILE STIMULI. NO S/S ACUTE DISTRESS. CALL LIGHT IN REACH AT ALL TIMES. FREQUENT VISUAL CHECKS BY ALL STAFF.
--- NOTE | 2020-07-08 23:40 | NUR ---
PATIENT IS ASLEEP. NO S/S ACUTE DISTRESS. CALL LIGHT WITHIN REACH. SAFETY PRECAUTIONS IN PLACE. ISOLATION PRECAUTIONS OBSERVED BY ALL STAFF.
[2020-07-09] VITALS: BP 99/76
--- NOTE | 2020-07-09 01:20 | NUR ---
MADE ROUNDS. PATIENT IS ASLEEP. NO S/S ACUTE DISTRESS. CALL LIGHT IN REACH. SAFETY PRECAUTIONS IN PLACE. ISOLATION PRECAUTIONS OBSERVED BY ALL STAFF.
--- NOTE | 2020-07-09 03:31 | NUR ---
INCONTINENT CARE RENDERED WITH COFFEE BREWER AT BEDSIDE. NO S/S ACUTE DISTRESS. CALL LIGHT IN REACH. SAFETY PRECAUTIONS IN PLACE. ISOLATION PRECAUTIONS OBSERVED BY ALL STAFF.
[2020-07-09 04:00] VITALS: BP 133/65
--- NOTE | 2020-07-09 05:28 | NUR ---
PATIENT RESTING COMFORTABLY IN BED. FLACC 0. NO S/S ACUTE DISTRESS. CALL LIGHT IN REACH. SAFETY PRECAUTIONS IN PLACE. ISOLATION PRECAUTIONS OBSERVED BY ALL STAFF.
[2020-07-09] MEDS: NACL 0.9% 1,000 ML IV SCH ×2 (06:05→09:31)
[2020-07-09 06:40] LABS: BASOPHILS % (AUTO) 0.2 % (0.0-2.0); HEMATOCRIT 35.8 % (36-48); MEAN CORPUSCULAR HEMOGLOBIN 32 pg (27-31); MEAN CORPUSCULAR HGB CONC 34 g/dL (33-37); MEAN CORPUSCULAR VOLUME 95.9 fL (80-94); MONOCYTES # (AUTO) 0.5 K/uL (0.8-1.0); MONOCYTES % (AUTO) 6.1 % (1.7-9.3); NEUTROPHILS # (AUTO) 6.6 K/uL (1.8-7.7); PLATELET COUNT (AUTO) 120 K/uL (140-450); RED BLOOD CELL COUNT(AUTO) 3.73 MIL/uL (4.20-5.40); RED CELL DISTRIBUTION WIDTH 14.4 % (11.6-13.7); WHITE BLOOD COUNT (AUTO) 8.2 K/uL (4.8-10.8)
[2020-07-09 06:53] LABS: CARBON DIOXIDE 24.1 mmol/L (21-32); CHLORIDE 106 mmol/L (98-107); CREATININE 0.7 mg/dL (0.6-1.3); GLUCOSE 100 mg/dL (74-106); POTASSIUM 4.1 mmol/L (3.5-5.1); SODIUM SERUM 141 mmol/L (136-145); UREA NITROGEN, BLOOD 20 mg/dL (7-18)
--- NOTE | 2020-07-09 07:02 | NUR ---
ENDORSED PATIENT TO AM SHIFT NURSE IN STABLE CONDITION FOR CONTINUITY OF CARE.
--- NOTE | 2020-07-09 07:10 | NUR ---
RECEIVED PATIENT FROM NAIL MACHINE OPERATOR RN FOR CONTINUITY OF CARE. PATIENT RESTING IN BED, AWAKE, AAO X1. FLACC 0. RESPIRATORY EVEN AND UNLABORED. NO ACUTE DISTRESS NOTED. SKIN WARM AND DRY. IV SITE LEFT UPPER ARM MIDLINE INTACT, PATENT, INFUSING FLUID WELL. ABDOMEN SOFT, NON TENDER. INCONTINENT WITH B/B. SAFETY MEASURES IN PLACE. DROPLET PRECAUTION. WILL CONTINUE TO MONITOR.
[2020-07-09 07:50] LABS: LYMPHOCYTES % (AUTO) 12.6 % (20.5-51.1); NEUTROPHILS % (AUTO) 81.1 % (42.2-75.2)
[2020-07-09 08:00] VITALS: BP 137/54
[2020-07-09] MEDS: FOLIC ACID 1 MG TAB PO SCH ×3 (09:32→16:29)
[2020-07-09] MEDS: MEMANTINE 10 MG TAB PO SCH (09:32)
[2020-07-09] MEDS: FERROUS SULFATE 325 MG TABEC PO SCH ×2 (09:32→20:40)
[2020-07-09] MEDS: CYANOCOBALAMIN 1,000 MCG TAB PO SCH (09:33)
[2020-07-09] MEDS: ASCORBIC ACID 500 MG TAB PO SCH (09:33)
[2020-07-09] MEDS: ZINC SULF 220 MG CAP PO SCH (09:34)
[2020-07-09] MEDS: CALCIUM CARB/VIT-D 500 MG/200 IU 1 TAB PO SCH ×2 (09:34→20:40)
[2020-07-09] MEDS: ESCITALOPRAM 20 MG TAB PO SCH (09:35)
--- NOTE | 2020-07-09 09:35 | NUR ---
SCHEDULED MORNING MEDICATION GIVEN, EDUCATION PROVIDED. PATIENT TOLERATED WELL. PATIENT'S O2 SAT 88-90% IN ROOM AIR, PUT OXYGEN VIA NC 2L, O2 SAT RANGE FROM 90-91%. INCREASED TO 3L, RANGE FROM 95-96%. WILL INFORM RT TO CHECK THE PATIENT. WILL CONTINUE TO MONITOR.
[2020-07-09] MEDS: ENOXAPARIN 60 MG/0.6 ML SYR SUBQ SCH ×2 (09:36→20:53)
--- NOTE | 2020-07-09 10:08 | NUR ---
FED PATIENT WITH HER BREAKFAST, 50% OF BREAKFAST CONSUMED. O2 SAT 96% WITH 3L NC. NO ACUTE DISTRESS NOTED. SAFETY MEASURES IN PLACE, WILL CONTINUE TO MONITOR.
--- NOTE | 2020-07-09 10:33 | NUR ---
PATIENT'S O2 SAT 94-95% WITH 3L, PATIENT IS AWAKE, WATCHING TV. RT CHECKED PATIENT. KEEP 3L NC. PATIENT KEPT COMFORTABLE. WILL CONTINUE TO CLOSELY TO MONITOR THE PATIENT.
[2020-07-09 12:00] VITALS: BP 152/81
--- NOTE | 2020-07-09 13:26 | NUR ---
SCHEDULED MEDICATION GIVEN. PATIENT'S O2 SAT 89% IN ROOM AIR. PUT OXYGEN BACK, O2 SAT 93% WITH 2L NC. NO ACUTE DISTRESS NOTED. SAFETY MEASURES IN PLACE, WILL CONTINUE TO MONITOR.
--- NOTE | 2020-07-09 14:31 | NUR ---
MADE ROUNDS, PATIENT RESTING IN BED, AWAKE, CONFUSED, REORIENTED THE PATIENT. O2 SAT 92% WITH 2L NC. HR 59. NO ACUTE DISTRESS NOTED. SAFETY MEASURES IN PLACE, WILL CONTINUE TO MONITOR.
[2020-07-09 16:00] VITALS: BP 139/50
--- NOTE | 2020-07-09 16:29 | NUR ---
SCHEDULED MEDICATION GIVEN, PATIENT TOLERATED WELL. PATIENT GET VERY CONFUSED. REORIENTED THE PATIENT. O2 SAT 93-94% IN ROOM AIR. SAFETY MEASURES IN PLACE, WILL CONTINUE TO MONITOR.
--- NOTE | 2020-07-09 19:25 | NUR ---
ENDORSED STABLE PATIENT TO FITNESS INSTRUCTOR RN FOR CONTINUITY OF CARE. O2 SAT 94% WITH 2L NC.
--- NOTE | 2020-07-09 19:40 | NUR ---
RECEIVED BEDSIDE REPORT FROM DAY SHIFT NURSE. PATIENT IS AWAKE. RESPIRATION EVEN UNLABORED ON 2L NC O2. NO DISTRESS NOTED. SKIN IS WARM AND DRY. IV PATENT AND INTACT. PLAN OF CARE WAS DISCUSSED. ALL SAFETY MEASURES IN PLACE. BED IS AT LOW POSITION. CALL LIGHT WITHIN REACH. WILL CONTINUE TO MONITOR.
[2020-07-09 20:00] VITALS: BP 134/56
--- NOTE | 2020-07-09 20:00 | NUR ---
INITIAL ASSESSMENT DONE. LEFT MIDLINE IV NOTED PATENT AND INTACT.
[2020-07-09] MEDS: MIRTAZAPINE 15 MG TAB PO SCH (20:40)
--- NOTE | 2020-07-09 20:50 | NUR ---
ALL SCHEDULED MEDS WERE GIVEN PER ORDER. NO ASE NOTED. WILL CONTINUE TO MONITOR
--- NOTE | 2020-07-09 21:37 | NUR ---
PT RESTING IN BED WATCHING TV SPO2 95 HR 58 2LNC PT DENIES SOB W/ NO DISTRESS NOTED AT THIS TIME WILL CONTINUE TO MONITOR
--- NOTE | 2020-07-09 23:48 | NUR ---
VITALS WERE TAKEN AND CHANGED PATIENT. NO DISTRESS NOTED
[2020-07-10] VITALS: BP 124/73
--- NOTE | 2020-07-10 02:00 | NUR ---
CHECKED PATIENT. PATIENT IS AWAKE. NO DISTRESS NOTED. WILL CONTINUE TO MONITOR
--- NOTE | 2020-07-10 03:12 | NUR ---
PER ANIMAL KEEPER PATIENT HR WENT DOWN TO 39BPM. CHECKED ON PATIENT. PATIENT IS SLEEPING NO DISTRESS NOTED. SATING 93%.
[2020-07-10 04:00] VITALS: BP 155/71
[2020-07-10] MEDS: NACL 0.9% 1,000 ML IV SCH ×2 (04:01→21:32)
--- NOTE | 2020-07-10 04:30 | NUR ---
VITALS WERE TAKEN. NO DISTRESS NOTED. PROVIDED AM CARE
[2020-07-10 06:58] LABS: BASOPHILS % (AUTO) 0.4 % (0.0-2.0); EOSINOPHILS % (AUTO) 0.2 % (0.0-4.0); HEMATOCRIT 34.8 % (36-48); HEMOGLOBIN 11.6 g/dL (12.0-16.0); LYMPHOCYTES # (AUTO) 1.4 K/uL (2.5-16.5); LYMPHOCYTES % (AUTO) 16.8 % (20.5-51.1); MEAN CORPUSCULAR HEMOGLOBIN 32 pg (27-31); MEAN CORPUSCULAR HGB CONC 33 g/dL (33-37); MEAN CORPUSCULAR VOLUME 94.9 fL (80-94); MONOCYTES # (AUTO) 0.5 K/uL (0.8-1.0); MONOCYTES % (AUTO) 5.8 % (1.7-9.3); NEUTROPHILS # (AUTO) 6.6 K/uL (1.8-7.7); NEUTROPHILS % (AUTO) 76.8 % (42.2-75.2); PLATELET COUNT (AUTO) 150 K/uL (140-450); RED BLOOD CELL COUNT(AUTO) 3.67 MIL/uL (4.20-5.40); RED CELL DISTRIBUTION WIDTH 14.1 % (11.6-13.7); WHITE BLOOD COUNT (AUTO) 8.6 K/uL (4.8-10.8)
[2020-07-10 07:02] LABS: ANION GAP 9.6 (8-16); CARBON DIOXIDE 30.9 mmol/L (21-32); CHLORIDE 100 mmol/L (98-107); CREATININE 0.7 mg/dL (0.6-1.3); GLUCOSE 89 mg/dL (74-106); POTASSIUM 3.5 mmol/L (3.5-5.1); SODIUM SERUM 137 mmol/L (136-145); UREA NITROGEN, BLOOD 15 mg/dL (7-18)
--- NOTE | 2020-07-10 07:20 | NUR ---
ENDORSED PATIENT TO DAY SHIFT NURSE AT BEDSIDE FOR CONTINUITY OF CARE
--- NOTE | 2020-07-10 07:21 | NUR ---
RECEIVED PATIENT FROM BOND UNDERWRITER RN. PATIENT AWAKE IN BED. AOX1. FLACC 0, RESPIRATIONS ARE EVEN AND UNLABORED. ON 2L O2 NC. IV SITE LEFT UPPER ARM MIDLINE INTACT, PATENT, INFUSING FLUID WELL. INCONTINENT WITH B/B. SAFETY MEASURES IN PLACE. ISOLATION PRECAUTION IN PLACE. CALL LIGHT WITHIN REACH. WILL CONTINUE TO MONITOR.
[2020-07-10 08:00] VITALS: BP 148/68
[2020-07-10] MEDS ORDERED: DEXA6TAB1 PO (08:37)
[2020-07-10] MEDS ORDERED: ROC2I IV (08:37)
[2020-07-10] MEDS ORDERED: VITC500 PO (08:37)
[2020-07-10] MEDS ORDERED: LOV60I SUBQ (08:37)
[2020-07-10] MEDS ORDERED: ZINC220C28 PO (08:37)
[2020-07-10] MEDS ORDERED: MV-M1TAB9 PO (08:39)
--- NOTE | 2020-07-10 09:30 | NUR ---
DUE MEDS GIVEN CRUSHED. TOLERATED WELL
[2020-07-10] MEDS: FERROUS SULFATE 325 MG TABEC PO SCH ×2 (09:35→20:51)
[2020-07-10] MEDS: ESCITALOPRAM 20 MG TAB PO SCH (09:35)
[2020-07-10] MEDS: FOLIC ACID 1 MG TAB PO SCH ×3 (09:35→17:00)
[2020-07-10] MEDS: ENOXAPARIN 60 MG/0.6 ML SYR SUBQ SCH ×2 (09:36→20:52)
[2020-07-10] MEDS: ZINC SULF 220 MG CAP PO SCH (09:36)
[2020-07-10] MEDS: ASCORBIC ACID 500 MG TAB PO SCH (09:36)
[2020-07-10] MEDS: CALCIUM CARB/VIT-D 500 MG/200 IU 1 TAB PO SCH ×2 (09:36→20:51)
[2020-07-10] MEDS: CYANOCOBALAMIN 1,000 MCG TAB PO SCH (09:36)
[2020-07-10] MEDS: MEMANTINE 10 MG TAB PO SCH (09:36)
--- NOTE | 2020-07-10 10:45 | NUR ---
PERICARE DONE. REPOSITIONED PT
[2020-07-10 12:00] VITALS: BP 143/56
[2020-07-10] MEDS ORDERED: AZIT250T11 PO (12:20)
--- NOTE | 2020-07-10 13:35 | NUR ---
PT AWAKE IN BED. AOX1, FLACC 0, NO S/S OF DISTRESS
--- NOTE | 2020-07-10 14:08 | NUR ---
07/10/20 RD INITIAL ASSESSMENT COMPLETED PLEASE REFER TO NUTRITION ASSESSMENT UNDER CARE ACTIVITY FOR ESTIMATED NUTRITIONAL NEEDS. 1. CONTINUE PUREE DIET TOLERATED 2. CONTINUE TO PROVIDE ASSISTANCE WITH MEALS 3. RD TO FOLLOW-UP 3-5 DAYS, MODERATE RISK SHIRA WHARTON RD
--- NOTE | 2020-07-10 15:20 | NUR ---
PT AWAKE IN BED. NO S/S OF DISTRESS, FLACC 0, ON 2L O2, O2SAT 95%
[2020-07-10 16:00] VITALS: BP 158/118
--- NOTE | 2020-07-10 17:30 | NUR ---
due meds given. flacc 0, no sob
--- NOTE | 2020-07-10 19:00 | NUR ---
ENDORSED TO VICE PRESIDENT FOR CONTINUITY OF CARE
--- NOTE | 2020-07-10 19:15 | NUR ---
RECEIVED BEDSIDE REPORT FROM DAY SHIFT NURSE. PATIENT IS SLEEPING RESPIRATION EVEN UNLABORED ON ROOM AIR. SATING 91%. NO DISTRESS NOTED. SKIN IS WARM AND DRY. LEFT PICC LINE NOTED PATENT AND INTACT. PLAN OF CARE WAS DISCUSSED. ALL SAFETY MEASURES IN PLACE. BED IS AT LOW POSITION. CALL LIGHT WITHIN REACH. WILL CONTINUE TO MONITOR.
[2020-07-10 20:00] VITALS: BP 147/74
--- NOTE | 2020-07-10 20:33 | NUR ---
PT RESTING ON RA WATCHING TV NO DISTRESS NOTED SPO2 92% HR 52
[2020-07-10] MEDS: MIRTAZAPINE 15 MG TAB PO SCH (20:51)
--- NOTE | 2020-07-10 20:51 | NUR ---
ALL SCHEDULED MEDS WERE GIVEN PER ORDER. CHANGED PATIENT. WILL CONTINUE TO MONITOR.
--- NOTE | 2020-07-10 22:10 | NUR ---
CHECKED PATIENT. PATIENT IS IN BED. RESPIRATION EVEN UNLABORED ON 2L NC O2. NO DISTRESS NOTED. WILL CONTINUE TO MONITOR.
--- NOTE | 2020-07-10 23:49 | NUR ---
VITALS WERE TAKEN. PATIENT IN STABLE CONDITION. NO DISTRESS NOTED.
[2020-07-11] VITALS: BP 159/66
--- NOTE | 2020-07-11 00:30 | NUR ---
PATIENT IS HUNGRY. FEED PATIENT. SPOUT TENDER AT BEDSIDE.
--- NOTE | 2020-07-11 02:18 | NUR ---
CHECKED PATIENT. PATIENT SLEEPING RESPIRATION EVEN UNLABORED ON 2L NC O2. NO DISTRESS NOTED. WILL CONTINUE TO MONITOR.
[2020-07-11 04:00] VITALS: BP 141/50
--- NOTE | 2020-07-11 05:12 | NUR ---
CHANGED PATIENT. PROVIDED PERICARE AND AM CARE
[2020-07-11 06:28] LABS: BASOPHILS % (AUTO) 0.3 % (0.0-2.0); EOSINOPHILS # (AUTO) 0.1 K/uL (0-0.4); EOSINOPHILS % (AUTO) 1.2 % (0.0-4.0); HEMATOCRIT 34.5 % (36-48); HEMOGLOBIN 11.2 g/dL (12.0-16.0); LYMPHOCYTES # (AUTO) 1.5 K/uL (2.5-16.5); LYMPHOCYTES % (AUTO) 18.5 % (20.5-51.1); MEAN CORPUSCULAR HEMOGLOBIN 31 pg (27-31); MEAN CORPUSCULAR HGB CONC 33 g/dL (33-37); MEAN CORPUSCULAR VOLUME 95.3 fL (80-94); MONOCYTES # (AUTO) 0.6 K/uL (0.8-1.0); MONOCYTES % (AUTO) 7.8 % (1.7-9.3); NEUTROPHILS # (AUTO) 5.9 K/uL (1.8-7.7); NEUTROPHILS % (AUTO) 72.2 % (42.2-75.2); PLATELET COUNT (AUTO) 180 K/uL (140-450); RED BLOOD CELL COUNT(AUTO) 3.62 MIL/uL (4.20-5.40); RED CELL DISTRIBUTION WIDTH 14.2 % (11.6-13.7); WHITE BLOOD COUNT (AUTO) 8.2 K/uL (4.8-10.8)
--- NOTE | 2020-07-11 07:06 | NUR ---
ENDORSED PATIENT TO DAY SHIFT NURSE FOR CONTINUITY OF CARE
--- NOTE | 2020-07-11 07:15 | NUR ---
REC'D BEDSIDE ENDORSEMENT FROM NIGHTSHIFT NURSE. PATIENT LYING IN BED, RESPIRATIONS LABORED AND UNEVEN. NO SIGNS OF DISTRESS. AO X 1, NC 1L, L MIDLINE DOUBLE LUMEN NS @60ML. SAFETY MEASURES IN PLACE. WILL CONT TO MONITOR.
[2020-07-11 07:25] LABS: ANION GAP 11.1 (8-16); CARBON DIOXIDE 30.2 mmol/L (21-32); CHLORIDE 102 mmol/L (98-107); CREATININE 0.7 mg/dL (0.6-1.3); GLUCOSE 88 mg/dL (74-106); POTASSIUM 4.3 mmol/L (3.5-5.1); SODIUM SERUM 139 mmol/L (136-145); UREA NITROGEN, BLOOD 17 mg/dL (7-18)
[2020-07-11 08:00] VITALS: BP 111/52
[2020-07-11] MEDS: ENOXAPARIN 60 MG/0.6 ML SYR SUBQ SCH (09:28)
[2020-07-11] MEDS ORDERED: CRUSHER, PILL MC ONE (09:33)
[2020-07-11] MEDS: MEMANTINE 10 MG TAB PO SCH (09:46)
[2020-07-11] MEDS: CALCIUM CARB/VIT-D 500 MG/200 IU 1 TAB PO SCH (09:46)
[2020-07-11] MEDS: FOLIC ACID 1 MG TAB PO SCH ×2 (09:46→12:41)
[2020-07-11] MEDS: ASCORBIC ACID 500 MG TAB PO SCH (09:47)
[2020-07-11] MEDS: CYANOCOBALAMIN 1,000 MCG TAB PO SCH (09:48)
[2020-07-11] MEDS: FERROUS SULFATE 325 MG TABEC PO SCH (09:48)
[2020-07-11] MEDS: ZINC SULF 220 MG CAP PO SCH (09:49)
[2020-07-11] MEDS: ESCITALOPRAM 20 MG TAB PO SCH (09:49)
--- NOTE | 2020-07-11 10:06 | NUR ---
ADMINISTERED PRESCRIBED MEDS PER MD ORDER. PATIENT ON SOFT MECH DIET, MEDS CRUSHED AND MIXED IN APPLESAUCE. PATIENT TOLERATED WELL. SAFETY MEASURES IN PLACE. WILL CONT TO MONITOR.
--- NOTE | 2020-07-11 11:45 | NUR ---
PT RESTING IN BED. ABLE TO MAKE SOME NEEDS KNOWN. RESPIRATIONS EVEN AND UNLABORED WITH NO SIGNS OF RESPIRATORY DISTRESS. SKIN WARM AND DRY TO TOUCH. WILL CONTINUE TO MONITOR
[2020-07-11 12:00] VITALS: BP 117/55
--- NOTE | 2020-07-11 12:47 | NUR ---
CALLED [facility] FOR REPORT AT [phone]. SPOKE TO MEI PHELPS FOR REPORT. MATTIE VERBALIZED UNDERSTANDING AND READ BACK INFORMATION. SAFETY MEASURES IN PLACE. WILL CONTINUE TO MONITOR
[2020-07-11 12:50] VITALS: BP 111/52
--- NOTE | 2020-07-11 12:56 | NUR ---
ADMINISTERED SCHED MEDS PER MD ORDER. PATIENT TOLERATED CRUSHED MED IN APPLESAUCE WELL. SAFETY MEASURES IN PLACE. WILL CONT TO MONITOR
--- NOTE | 2020-07-11 13:30 | NUR ---
PATIENT TAKEN OFF NC O2 FOR SAT ABOVE 90 FOR OXYGEN TRIAL. AFTER 15 MIN PATIENT REMAINED AT 92%. RESPIRATIONS EVEN AND UNLABORED. NO SIGNS OF DISTRESS. SAFETY MEASURES IN PLACE. WILL CONT TO MONITOR.
--- NOTE | 2020-07-11 14:15 | NUR ---
REC'D CALL FROM [employer]IST STATING TRANSPORT IS RUNNING LATE AND WILL BE HERE TO PLUMBER PIPE FITTING PATIENT BETWEEN 1450 AND 1515. CHARGE NURSE AWARE.
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
== END 2020-07-11 16:00 | DRG 177 ==
LOC: MED 14:11 → MTU 18:13 → MED 18:43
PROVIDERS: ADMIT Emergency Medicine; ATTEND Emergency Medicine
PROC: XW13325 Transfusion of Convalescent Plasma (Nonautologous) into Peripheral Vein, Percutaneous Approach, New Technology Group 5 (ICD-10-PCS; principal; 2020-07-07)
DX: U07.1 COVID-19 (principal); J12.89 Other viral pneumonia; J96.01 Acute respiratory failure with hypoxia; N39.0 Urinary tract infection, site not specified; E87.0 Hyperosmolality and hypernatremia; B96.20 Unspecified Escherichia coli [E. coli] as the cause of diseases classified elsewhere; E78.5 Hyperlipidemia, unspecified; E86.0 Dehydration; G30.9 Alzheimer's disease, unspecified; F02.80 Dementia in other diseases classified elsewhere, unspecified severity, without behavioral disturbance, psychotic disturbance, mood disturbance, and anxiety; I10 Essential (primary) hypertension; F20.9 Schizophrenia, unspecified; F41.9 Anxiety disorder, unspecified; F31.9 Bipolar disorder, unspecified; Z66 Do not resuscitate; Z88.0 Allergy status to penicillin; Z91.041 Radiographic dye allergy status; Z79.899 Other long term (current) drug therapy
CPT/HCPCS: 36415; 36600; 71045; 80048; 80053; 81001; 82803; 83036; 83605; 83690; 83735; 83880; 84100; 84436; 84439; 84443; 84479; 84484; 85025; 85379; 85610; 85730; 86886; 86900; 86901; 87040; 87081; 87086; 93005; 96365; 97110; 97161-GP; 99291; C1758; J0456; J0696; J1644; J1650; J1956; J3420; J7030; J7060; P9017; U0003

== ENCOUNTER 2020-11-21 07:54 | Emergency (ER) | payer OTHER, MEDICAID, BC ==
[~2020-11-21] VITALS: Ht 152.4 cm; Wt 54.4 kg
[~2020-11-21 07:54] MED LIST changes: +ALUM355S5 PO; -ATI.5 PO; -ATOR20TA40 PO; +AZIT250T11 PO; -BENZ-196 PO; +CALC-1626 PO; +DEXA6TAB1 PO; -DONE10TA10 PO; -FISH10005 PO; +LORA-476 PO; +LOV60I SUBQ; +MIRT-91 PO; +MV-M1TAB9 PO; -QUET100T44 PO; +ROC2I IV; +VITC500 PO; +ZINC220C28 PO
[2020-11-21 07:55] VITALS: BP 146/59
[2020-11-21 08:16] LABS: EOSINOPHILS # (AUTO) 0.3 K/uL (0-0.4); EOSINOPHILS % (AUTO) 5.7 % (0.0-4.0); HEMATOCRIT 37.4 % (36-48); HEMOGLOBIN 12.1 g/dL (12.0-16.0); LYMPHOCYTES # (AUTO) 1.4 K/uL (2.5-16.5); LYMPHOCYTES % (AUTO) 29.1 % (20.5-51.1); MEAN CORPUSCULAR HEMOGLOBIN 32 pg (27-31); MEAN CORPUSCULAR HGB CONC 32 g/dL (33-37); MEAN CORPUSCULAR VOLUME 97.4 fL (80-94); MONOCYTES # (AUTO) 0.3 K/uL (0.8-1.0); MONOCYTES % (AUTO) 6.6 % (1.7-9.3); NEUTROPHILS # (AUTO) 2.8 K/uL (1.8-7.7); NEUTROPHILS % (AUTO) 57.6 % (42.2-75.2); PLATELET COUNT (AUTO) 190 K/uL (140-450); RED BLOOD CELL COUNT(AUTO) 3.84 MIL/uL (4.20-5.40); RED CELL DISTRIBUTION WIDTH 15.9 % (11.6-13.7); WHITE BLOOD COUNT (AUTO) 4.9 K/uL (4.8-10.8)
[2020-11-21 08:31] LABS: ALBUMIN 4.1 g/dL (3.4-5.0); ANION GAP 10.1 (8-16); ASPARTATE AMINOTRANSFERASE 25 U/L (15-37); CARBON DIOXIDE 30.7 mmol/L (21-32); CHLORIDE 106 mmol/L (98-107); CREATININE 0.8 mg/dL (0.6-1.3); GLUCOSE 75 mg/dL (74-106); MAGNESIUM 2.3 mg/dL (1.8-2.4); PHOSPHORUS 3.1 mg/dL (2.5-4.9); POTASSIUM 3.8 mmol/L (3.5-5.1); SODIUM SERUM 143 mmol/L (136-145); TOTAL BILIRUBIN 0.6 mg/dL (0.0-1.0); UREA NITROGEN, BLOOD 22 mg/dL (7-18)
[2020-11-21 10:47] VITALS: BP 145/74
== END 2020-11-21 10:47 | disposition home or self-care (01) ==
LOC: MED 07:54
DX: S00.83XA Contusion of other part of head, initial encounter (principal); I10 Essential (primary) hypertension; F03.90 Unspecified dementia, unspecified severity, without behavioral disturbance, psychotic disturbance, mood disturbance, and anxiety; Z88.0 Allergy status to penicillin; Z88.8 Allergy status to other drugs, medicaments and biological substances; W17.89XA Other fall from one level to another, initial encounter; Y93.89 Activity, other specified; Y92.89 Other specified places as the place of occurrence of the external cause; Y99.8 Other external cause status
CPT/HCPCS: 36415; 70450; 71045; 72125; 80053; 83735; 84100; 84484; 85025; 93005; 99285

== ENCOUNTER 2021-05-18 23:07 | Emergency (ER) | payer OTHER, MEDICAID, BC ==
[~2021-05-18] VITALS: Ht 165.1 cm; Wt 68.5 kg
[2021-05-18] MEDS ORDERED: DEXTROSE 50% 50 ML SYR IVP ONE ×2 (23:09→23:50)
[2021-05-18 23:38] VITALS: BP 143/50
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
--- NOTE | 2021-05-19 02:29 | NUR ---
Patient appears to be resting comfortably in bed. Vital Signs within normal limits. Respirations even and unlabored.
[2021-05-19] MEDS ORDERED: LORazepam 2 MG/ML VIAL ONE (02:48)
[2021-05-19] MEDS ORDERED: ACETAMINOPHEN EXTRA STRENGTH 500 MG TAB PO ONE (02:55)
[2021-05-19] MEDS ORDERED: LORazepam 2 MG/ML VIAL IVP ONE (03:00)
--- NOTE | 2021-05-19 03:51 | NUR ---
Patient appears to be resting comfortably in bed. Vital Signs within normal limits. Respirations even and unlabored.
--- NOTE | 2021-05-19 07:19 | NUR ---
GIVEN REPORT TO YANY GONZALEZ. TRANSFER OF CARE AT THIS TIME.
--- NOTE | 2021-05-19 07:22 | NUR ---
REPORT RECEIVED FROM YANY CUMMINGS. TRANSFER OF CARE RECEIVED
--- NOTE | 2021-05-19 08:56 | NUR ---
pt currently resting in bedside with eyes open. pt on front desk monitor and vital signs stable. bed in lowest position with siderail x2 up. will continue to monitor
--- NOTE | 2021-05-19 09:06 | NUR ---
duc franz called for pt transport and spoke with danyel. ETA is 45 min from now
--- NOTE | 2021-05-19 09:10 | NUR ---
called yessenia bernal to give report on pt. no answer at this time
[2021-05-19 10:42] VITALS: BP 176/71
--- NOTE | 2021-05-19 10:43 | NUR ---
Patient discharged with v/s stable. Written and verbal after care instructions given and explained. Patient verbalized understanding. Wheel Chair Assisted with to residential. All questions addressed prior to discharge. Advised to follow up with PMD.
== END 2021-05-19 10:41 ==
LOC: MED 23:07
DX: S05.12XA Contusion of eyeball and orbital tissues, left eye, initial encounter (principal); F03.90 Unspecified dementia, unspecified severity, without behavioral disturbance, psychotic disturbance, mood disturbance, and anxiety; Z88.0 Allergy status to penicillin; Z88.8 Allergy status to other drugs, medicaments and biological substances; Z79.899 Other long term (current) drug therapy; W20.8XXA Other cause of strike by thrown, projected or falling object, initial encounter; Y93.89 Activity, other specified; Y92.129 Unspecified place in nursing home as the place of occurrence of the external cause; Y99.8 Other external cause status
CPT/HCPCS: 70450; 70486; 96374; 96375; 99285; J2060

== ENCOUNTER 2021-06-04 14:59 | Emergency (ER) | payer OTHER, MEDICAID, BC ==
[~2021-06-04] VITALS: Ht 160 cm; Wt 54.0 kg
[2021-06-04 14:59] VITALS: BP 143/72
--- NOTE | 2021-06-04 14:59 | NUR ---
Pt BIBA to bed 08.
--- NOTE | 2021-06-04 15:17 | NUR ---
XRAY AT BEDSIDE
--- NOTE | 2021-06-04 17:25 | NUR ---
DR CARLSON AT BEDSIDE EXAMINING PT
--- NOTE | 2021-06-04 17:43 | NUR ---
PT TO BE D/C. NOTIFIED [facility]. FAMILY'S DAUGTHER STATED SHE WILL BE HERE IN 45 MIN.
[2021-06-04 18:26] VITALS: BP 143/72
--- NOTE | 2021-06-04 18:26 | NUR ---
Patient discharged with v/s stable. Written and verbal after care instructions given and explained. Patient alert, oriented and verbalized understanding of instructions. Wheel Chair Assisted with to car. All questions addressed prior to discharge. ID band removed. Patient advised to follow up with PMD. Opportunity to ask questions provided and answered.
--- NOTE | 2021-06-04 18:26 | NUR ---
NO NURSING INTERVENTIONS IMPLEMENTED
== END 2021-06-04 18:26 | disposition home or self-care (01) ==
LOC: MED 14:59
DX: M79.89 Other specified soft tissue disorders (principal); F03.90 Unspecified dementia, unspecified severity, without behavioral disturbance, psychotic disturbance, mood disturbance, and anxiety; Z88.0 Allergy status to penicillin; Z88.8 Allergy status to other drugs, medicaments and biological substances; Z79.899 Other long term (current) drug therapy
CPT/HCPCS: 73130; 99283; Q0092